=== PATIENT | male | born 1945 | race Caucasian/White ===

== ENCOUNTER 2018-08-28 22:19 | Inpatient (IN) | payer MEDICARE ==
[~2018-08-28 22:19] MED LIST: ISOVUE-370 76%-LOCM 1 ML ONE
[2018-08-28 23:00] LABS: #Eosinphils 0.1 thou/uL (0.0-0.7); #Lymphocytes 0.5 thou/uL (1.20-3.40); #Monocytes 0.3 thou/uL (0.11-0.59); #Neutrophils 6.3 thou/uL (1.40-6.50); %Basophils 0.3 % (0.0-1.0); %Eosinophils 1.1 % (0.0-10.0); %Lymphocytes 6.6 % (21.0-51.0); %Monocytes 4.2 % (0.0-10.0); %Neutrophils 87.7 % (42.0-75.0); Hemoglobin 15.8 g/dL (14.0-18.0); Mean Corpuscular HGB CONC 33.7 g/dL (32.0-36.0); Mean Corpuscular Hemoglobin 30.9 pg (27.0-31.0); Mean Corpuscular Volume 91.6 fL (78.0-98.0); Mean Platelet Volume 6.6 fL (7.4-10.4); Platelet Count 163 thou/uL (130-400); RBC Distribution Width 12.5 % (11.5-14.5); Red Blood Cell (RBC) Count 5.12 mill/uL (4.70-6.10); White Blood Cell (WBC) Count 7.2 thou/uL (4.8-10.8)
[2018-08-28] MEDS ORDERED: Piperacillin/Tazobactam 4.5 GM VIAL ONE (23:18)
[2018-08-28] MEDS ORDERED: Morphine 4 MG/ML VIAL ONE (23:18)
[2018-08-28 23:19] LABS: ALT (SGPT) 20 U/L (8-55); AST (SGOT) 20 U/L (5-34); Albumin 4.3 g/dL (3.4-4.8); Alkaline Phosphatase 70 U/L (40-150); Anion Gap 11 mmol/L (10-20); BUN (Urea Nitrogen) 20 mg/dL (8.4-25.7); Bilirubin, Total 0.6 mg/dL (0.2-1.2); Calc. Creatinine Clearance 0 mL/min (70-130); Calcium 9.1 mg/dL (7.8-10.44); Carbon Dioxide 27 mmol/L (23-31); Chloride 103 mmol/L (98-107); Estimated GFR-MDRD 75; Globulin 3.4 g/dL (2.4-3.5); Glucose 126 mg/dL (83-110); Protein, Total 7.7 g/dL (5.8-8.1); Sodium 137 mmol/L (136-145)
--- NOTE | 2018-08-29 00:03 | RAD ---
FRONTAL VIEW CHEST: INDICATIONS: Lower abdominal pain. COMPARISON: 04/19/2010 FINDINGS: There is no free air beneath the hemidiaphragms. The cardiomediastinal silhouette is accentuated by the portable technique. No lobar consolidation, significant effusion, or discrete pneumothorax. The re is a punctate density, stable, of the right mid lung zone, favoring granulomatous calcification. IMPRESSION: No evidence of focal consolidation. POS: [facility]
--- NOTE | 2018-08-29 00:35 | CT ---
CT ABDOMEN AND PELVIS WITH CONTRAST: INDICATIONS: Pain. FINDINGS: There is granulomatous calcification and mild volume loss/scarring of the lung bases. A complex mass of the left adrenal gland is present, a component of which does suggest adrenal myelolipoma, althoug h there is an additional heterogeneous soft tissue component separately located within the left adren al gland. There is also nodularity of the right adrenal gland. Granulomatous calcification is prese nt within the liver and spleen. No focal pancreatic mass. No hydronephrosis of the kidneys. Puncta te calcification of the right kidney favors nonobstructive nephrolithiasis. Vascular calcification i s seen within the left kidney. There is inflammation of the left lower quadrant, related to sigmoid diverticulosis. There are adjacent, extraluminal, small locules of air density, related to localized perforation. along with extraluminal fluid, some of which is complex in morphology, although there i s no well formed, drainable abscess currently present. Diffuse osseous degenerative change is presen t. IMPRESSION: 1. Acute sigmoid diverticulitis with localized perforation. Surgical consultation is warranted. 2. Complex left adrenal mass, a component of which is compatible with adrenal myelolipoma, although an additional component, separately, within the left adrenal gland, could relate to additional ramana ion tumor. There is also heterogeneity of the right adrenal gland. These findings should be further evaluated with a follow-up adrenal mass protocol CT abdomen. 3. Additional details are as described above. POS: [facility]
[2018-08-29] MEDS ORDERED: Morphine 4 MG/ML VIAL ONE (00:41)
[2018-08-29] MEDS ORDERED: Morphine 2 MG/ML SYRINGE SLOW IVP PRN (02:02)
[2018-08-29] MEDS ORDERED: Ondansetron ODT 4 MG TAB SL PRN (02:07)
[2018-08-29] MEDS ORDERED: Sodium Chloride 0.9% 1,000 ML IV SCH (02:07)
[2018-08-29] MEDS ORDERED: Ondansetron HCl/PF 4 MG/2 ML Vial IVP PRN (02:07)
[2018-08-29] MEDS ORDERED: Acetaminophen 325 MG TAB PO PRN (02:07)
[2018-08-29 02:18] VITALS: BMI 32.8
[2018-08-29] MEDS: Morphine 4 MG/ML VIAL SLOW IVP PRN ×2 (02:33→06:23)
[2018-08-29 03:22] LABS: Lactic Acid 3.1 mmol/L (0.5-2.2)
[2018-08-29] MEDS ORDERED: Piperacillin/Tazobactam 4.5 GM in Sodium Chloride 0.9% 100 ML IVPB SCH (06:00)
[2018-08-29] MEDS ORDERED: Morphine 4 MG/ML Carpuject IVP PRN (07:48)
[2018-08-29] MEDS ORDERED: Ondansetron ODT 4 MG TAB PO PRN (07:48)
--- NOTE | 2018-08-29 08:06 | HP ---
HISTORY OF PRESENT ILLNESS: Issa English is a 73-year-old male patient who lives in [place], has ac alturas onset of pain, right lower quadrant 3 days ago, presents to the emergency room with a white count of 7, hemoglobin 15. Basic metabolic profile normal, CAT scan revealing changes of acute diverticul itis. The patient's pain is left lower quadrant and suprapubic. The patient reports having had a co lonoscopy in early 1999, he thinks here in this area. He reports it was normal. He is having quite a bit of pain at this time. He has been afebrile. He has not had any nausea or vomiting. ALLERGIES: None. SOCIAL HISTORY: Tobacco 1-1/2 packs per day. ALCOHOL: Socially every 2-3 days. MEDICATIONS: Tylenol, indomethacin 25 mg b.i.d. PAST SURGICAL HISTORY: Cholecystectomy. PAST MEDICAL HISTORY: Gout. REVIEW OF SYSTEMS: [place] point noncontributory. FAMILY HISTORY: Noncontributory. PHYSICAL EXAMINATION: VITAL SIGNS: Height 5 foot 9, 222 pounds, BMI 32, 99.6, 97, 155/82. HEENT: Unremarkable. Sclerae nonicteric. SKIN: Nonjaundiced. Skin is normal. LYMPH: Axilla, groins, neck without lymphadenopathy. NEURO: Neurologically intact. No focal deficit. LUNGS: Clear to auscultation, no wheezing. CARDIAC: Regular rate and rhythm without murmur or gallop. ABDOMEN: Soft, tenderness in his left lower quadrant and suprapubic. EXTREMITIES: Unremarkable. No ankle edema. LABORATORY: Sodium 137, potassium 4, BUN 20, creatinine 0.98, GFR 75. Glucose 126. Lactate 2.3, wh ite count 7.2, hemoglobin 15. CAT scan; changes acute diverticulitis. ASSESSMENT AND PLAN: 1. Diverticulitis. Plan bowel rest, intravenous antibiotics, fluids. Would transition to a low fib er diet, soft diet for 2 weeks once his pain improves and tenderness improves and then after 2 weeks a high fiber diet, would recommend a colonoscopy in 4-6 weeks. Hopefully, this will resolve with int ravenous antibiotics. 2. Gout, on indomethacin. 3. Tobacco abuse.
[2018-08-29] MEDS: Lactated Ringer's 1,000 ML IV SCH ×2 (09:17→20:30)
[2018-08-29] MEDS: Morphine 4 MG/ML VIAL IV PRN ×2 (09:18→18:03)
[2018-08-29] MEDS: Enoxaparin Sodium 40 MG/0.4 ML SYRINGE SC SCH (09:19)
[2018-08-29] MEDS: Pantoprazole 40 MG VIAL IVP SCH (09:19)
[2018-08-29] MEDS: Acetaminophen 1,000 MG in Premix Bag 1 BAG IVPB SCH ×2 (11:58→18:00)
[2018-08-29] MEDS: Piperacillin/Tazobactam 4.5 GM in Sodium Chloride 0.9% 100 ML IVPB SCH ×2 (11:58→18:02)
[2018-08-29] MEDS: Ketorolac Tromethamine 30 MG/ML VIAL IVP SCH ×2 (11:59→18:01)
--- NOTE | 2018-08-29 14:55 | PQF ---
CLINICAL DOCUMENTATION IMPROVEMENT CLARIFICATION FORM: ICD-10 Updated PLEASE DO AN ADDENDUM TO THE PROGRESS NOTE WITH ANY DOCUMENTATION UPDATES OR ADDITIONS AND CARRY THROUGH TO DC SUMMARY. THANK YOU. DATE: 08/29/18 ATTN: DR. MCFADDEN Please exercise your independent, professional judgment in responding to the clarification form. Clinical indicators are provided on the bottom of this form for your review Please check appropriate box(es): [ ] Sepsis due to: (Pna, UTI, gangrenous gall bladder, etc.) Due to: [ ] Device (please specify) [ ] Implant [ ] Graft [ ] Infusion [ ] SIRS due to non-infectious process (please specify etiology) [ ] with organ dysfunction [ ] without organ dysfunction [ ] Severe sepsis with acute organ dysfunction of: (Examples: respiratory failure, encephalopathy, acute kidney failure, other) [ ] Septic Shock [ ] Localized infection without sepsis [ ] Other diagnosis [ ] Unable to determine In addition, please specify: Present on Admission (POA): [ ] Yes [ ] No [ ] Unable to determine For continuity of documentation, please document condition throughout progress notes and discharge summary. Thank You. CLINICAL INDICATORS - SIGNS / SYMPTOMS / LABS LACTIC ACID 08/28: 2.3 10: 3.1 ER NOTE: PULSE 132 RR 28 RISKS: DIVERTICULITIS TREATMENT: IV FLUIDS (ER-PRESENT) IV ZOSYN (ER-PRESENT) BLOOD CULTURES (This form is maintained as a part of the permanent medical record) 2014 [employer]. All Rights Reserved ROSALES [email or web address] Office: [phone] [facility]
[2018-08-30] MEDS: Ketorolac Tromethamine 30 MG/ML VIAL IVP SCH ×3 (00:02→12:58)
[2018-08-30] MEDS: Piperacillin/Tazobactam 4.5 GM in Sodium Chloride 0.9% 100 ML IVPB SCH ×5 (00:21→23:06)
[2018-08-30] MEDS: hydrALAZINE 20 MG/ML VIAL SLOW IVP PRN (01:25)
[2018-08-30] MEDS: Acetaminophen 1,000 MG in Premix Bag 1 BAG IVPB SCH ×5 (05:10→23:06)
[2018-08-30] MEDS: Lactated Ringer's 1,000 ML IV SCH ×2 (05:33→15:57)
[2018-08-30 06:50] LABS: #Lymphocytes 0.4 thou/uL (1.20-3.40); #Monocytes 0.3 thou/uL (0.11-0.59); #Neutrophils 7.3 thou/uL (1.40-6.50); %Basophils 0.1 % (0.0-1.0); %Eosinophils 0.5 % (0.0-10.0); %Lymphocytes 5.1 % (21.0-51.0); %Monocytes 3.2 % (0.0-10.0); %Neutrophils 91.1 % (42.0-75.0); Hemoglobin 12.8 g/dL (14.0-18.0); Mean Corpuscular HGB CONC 32.7 g/dL (32.0-36.0); Mean Corpuscular Hemoglobin 30.6 pg (27.0-31.0); Mean Corpuscular Volume 93.5 fL (78.0-98.0); Mean Platelet Volume 7.2 fL (7.4-10.4); PLT Morphology Comment Appears Decreased; Platelet Count 115 thou/uL (130-400); RBC Distribution Width 12.6 % (11.5-14.5)
[2018-08-30] MEDS: Pantoprazole 40 MG VIAL IVP SCH (08:03)
[2018-08-30] MEDS: Enoxaparin Sodium 40 MG/0.4 ML SYRINGE SC SCH (08:03)
[2018-08-30] MEDS: Morphine 4 MG/ML VIAL IV PRN (09:01)
[2018-08-30 10:33] LABS: #Lymphocytes 0.4 thou/uL (1.20-3.40); #Monocytes 0.2 thou/uL (0.11-0.59); #Neutrophils 6.4 thou/uL (1.40-6.50); %Basophils 0.1 % (0.0-1.0); %Eosinophils 0.4 % (0.0-10.0); %Lymphocytes 5.5 % (21.0-51.0); %Monocytes 2.8 % (0.0-10.0); %Neutrophils 91.2 % (42.0-75.0); Hemoglobin 13.7 g/dL (14.0-18.0); Mean Corpuscular Hemoglobin 30.9 pg (27.0-31.0); Mean Corpuscular Volume 93.7 fL (78.0-98.0); Mean Platelet Volume 6.6 fL (7.4-10.4); Platelet Count 111 thou/uL (130-400); RBC Distribution Width 12.6 % (11.5-14.5); Red Blood Cell (RBC) Count 4.44 mill/uL (4.70-6.10)
[2018-08-30 10:54] LABS: ALT (SGPT) 35 U/L (8-55); AST (SGOT) 25 U/L (5-34); Albumin 3.7 g/dL (3.4-4.8); Alkaline Phosphatase 63 U/L (40-150); Anion Gap 13 mmol/L (10-20); BUN (Urea Nitrogen) 17 mg/dL (8.4-25.7); Bilirubin, Total 1.9 mg/dL (0.2-1.2); Calc. Creatinine Clearance 95 mL/min (70-130); Calcium 9.3 mg/dL (7.8-10.44); Carbon Dioxide 26 mmol/L (23-31); Chloride 103 mmol/L (98-107); Estimated GFR-MDRD 73; Globulin 3.3 g/dL (2.4-3.5); Glucose 130 mg/dL (83-110); Potassium 4.5 mmol/L (3.5-5.1); Sodium 137 mmol/L (136-145)
[2018-08-30] MEDS ORDERED: Lactated Ringer's 1,000 ML IV SCH ×3 (11:26→17:00)
[2018-08-30] MEDS ORDERED: Vecuronium 10 MG VIAL ONE (11:31)
[2018-08-30] MEDS ORDERED: Metoprolol Tartrate 5 MG/5 ML VIAL ONE (11:31)
[2018-08-30 11:37] LABS: Actual Bicarbonate (HCO3a) 22.6 mEq/L (22-28); Base Excess (BEa) -3.1 mEq/L (-2.0 to +3.0); CO2 Tension 42.9 mmHg (35.0-45.0); Calcium, Ionized 1.15 mmol/L (1.12-1.30); Carboxyhemoglobin (COHb) 2.3 gm% (0.0-3.0); Hemoglobin (Hb) 14.5 g/dL (14.0-18.0); O2 Tension (PaO2) 113.1 mmHg (> 70.0); Potassium - ABG Lab 3.86 mmol/L (3.70-5.30); Puncture Site LRA; pH, Arterial 7.34 (7.35-7.45)
[2018-08-30 11:39] LABS: ALV-art Gradient 32.915 (0-20)
--- NOTE | 2018-08-30 11:50 | PRG ---
DATE OF SERVICE: 08/30/2018 SUBJECTIVE: Mr. Garcia is dyspneic this morning. He states his abdominal pain is no different than it was yesterday, but he is having a terrible time breathing. He is a pack and half a day smoker in the past. He has been on IV antibiotics with LR at 125 an hour. He has had Lovenox ordered since ad mission yesterday. He had a 2-view chest, 2-view abdomen today revealing COPD changes, ileus changes , no free air. LABORATORY DATA: Comprehensive metabolic profile unremarkable. Bilirubin elevated at 1.9. His whit e count is 7, hemoglobin 13. Differential is unremarkable. PHYSICAL EXAMINATION: VITAL SIGNS: Temperature is 97.9 degrees, heart rate 113, respiratory rate 24-22, 94% on nasal cannu la, blood pressure 166/82. LUNGS: Slightly coarse at the base, but there is no wheezing. He is terribly tachypneic, dyspneic. CARDIAC: Sinus tachycardia, 105-108. ABDOMEN: Slightly protuberant, distended. His abdomen seems to be soft with focal tenderness in lef t lower quadrant as well as yesterday. ASSESSMENT AND PLAN: Increased abdominal distention. Plain radiograph x-ray did not reveal evidence of free air. I do not think he needs an emergent operation and I think he is having an exacerbation of his chronic obstructive pulmonary disease. We will order a stat echocardiogram, cardiac enzymes, EKG, nebulizer treatment and decrease his IV fluids to 100 an hour. I have consulted Dr. Saurav Kelly and spoke with him personally. We will transfer the patient to ICU, continue n.p.o., IV fluids and a ntibiotics. If he does end up getting intubated, we will probably obtain a CAT scan of his abdomen a nd pelvis again.
[2018-08-30] MEDS ORDERED: Propofol 1,000 MG/100 ML VIAL IV ONE (11:53)
[2018-08-30] MEDS: Midazolam HCl 2 mg/2 ml Vial ONE ×2 (11:55→12:00)
[2018-08-30] MEDS ORDERED: Ventilator Sedation Protocol 1 EACH FS SCH (12:15)
[2018-08-30] MEDS ORDERED: Lorazepam 2 MG/ML VIAL SLOW IVP PRN (12:19)
[2018-08-30] MEDS ORDERED: DISCONTINUE PREVIOUS NARCOTIC PAIN MEDICATIONS AND BENZODIAZEPINES FS SCH (12:19)
[2018-08-30] MEDS ORDERED: fentaNYL Citrate/PF 2,000 MCG in Sodium Chloride 0.9% 60 ML IV SCH (12:19)
[2018-08-30] MEDS ORDERED: Fentanyl BOLUS 250 ML IVPB PRN (12:19)
[2018-08-30] MEDS ORDERED: Propofol BOLUS 1,000 MG/100 ML VIAL IV PRN (12:19)
[2018-08-30 12:42] LABS: CKMB 7.4 ng/mL (0-6.6); Troponin I 0.415 ng/mL (< 0.028)
[2018-08-30] MEDS: Morphine 4 MG/ML VIAL SLOW IVP PRN ×2 (12:49→23:07)
[2018-08-30] MEDS ORDERED: Iopamidol 370 76% 50 ML VIAL FS ONE (12:49)
[2018-08-30] MEDS ORDERED: ISOVUE-370 76%-LOCM 1 ML ONE (12:49)
--- NOTE | 2018-08-30 13:18 | RAD ---
ABDOMEN TWO VIEW ONE VIEW CHEST: History: Sigmoid diverticulitis. Comparison: CT 08-28-18 FINDINGS: Mild atelectatic changes in the lung bases. Heart size within normal limits given technique. Upright view is severely limited. The hemidiaphragms are not fully evaluated. Evaluation for free air is limited. There mildly distended loops of small bowel throughout the abdomen. This may be a sequellae of ileus. The known extraluminal air seen in the CT examination is not seen on today's radiograph. IMPRESSION: Limited evaluation for free intraperitoneal gas although no gross free intraperitoneal air is seen. 2. Mildly distended loops of small bowel throughout the abdomen likely ileus. POS: [facility]
--- NOTE | 2018-08-30 13:28 | CON ---
DATE OF CONSULTATION: 08/30/2018 HISTORY OF PRESENT ILLNESS: This is a 73-year-old gentleman. I was called on an emergency basis to see the patient on the surgical floor after he was found to be tachypneic and tachycardic. Dr. Mandujano is his surgeon who admitted the patient. Apparently he has got a perforated sigmoid colon with localized infection. He started having marked respiratory distress this morning. Breathing 30-40 times a minute, pulse 12 0, blood pressure 150/80. When I arrived, he was clearly struggling His main problem appears to be difficult breathing, though according to the nurses taking care of the patient he has been complainin g of abdominal distention now for the last several hours. A stat chest x-ray was taken which did not show any acute infiltrates. His blood gases were obtained stat which showed a PO2 113, pCO2 42 and a pH of 3.34 on 2 liters nasal O2. His BUN and creatinine were normal. His electrolytes are normal. Glucose 130. He continued to have difficulty breathing in spite of getting neb treatments. According to the who was present at the bedside the patient has not had a physical for a period of time and presented to the hospital with new onset right lower quadrant pain with a hemoglobin of 1 5. White count is 7000. CAT scan revealed acute diverticulitis, left lower quadrant discomfort. PAST MEDICAL HISTORY: Apparently important only for gout. Apparently, he takes indomethacin 25 twic e a day. PAST SURGICAL HISTORY: Include cholecystectomy. SOCIAL HISTORY: Tobacco 1-1-1/2 packs a day for most of his life. He is a commercial roofer. Presently sedent giovanna. REVIEW OF SYSTEMS: Pertinent for severe COPD, according to his he can barely walk 50 feet witho ut getting markedly short of breath, but he apparently has no medication that I can see he is taking for his breathing. PHYSICAL EXAMINATION: VITAL SIGNS: He was transferred to the ICU, still breathing 35-40 a minute, pulse 140. Blood pressu re 180/80. CHEST: Chest revealed decreased breath sounds, no wheezing. CARDIAC: Sinus tachycardia. ABDOMEN: Very distended. I discussed with Dr. Mandujano, his surgeon, it is felt the best option at this time was to intubate him , send him for a CT of his abdomen and his chest. Thereafter, in the ICU, he was given a total of 2+2 of Versed. A bite block placed, a 7.5 endotrache al tube was placed above the bronchoscope and intubated. Tube was placed above the magy. He requi red Diprivan in addition of morphine. He was placed on a fentanyl and Diprivan drip. Stat CT of his chest and abdomen are being ordered. ADDITIONAL LABORATORY: White count 7000, H&H 13 and 41, platelet count is low at 11. Electrolytes a re normal. Glucose 130. IMPRESSION: 1. Respiratory distress, probably secondary to marked abdominal distention. 2. Probably chronic obstructive pulmonary disease, though he has never had a workup. 3. Marked anxiety 4. History of gout. PLAN: Antibiotics have been initiated by surgery, Yoselyn. I have added nebs, steroids. Post-intubat ion vent support, emergency x-ray and echo is being ordered. This is a 45 minute critical care time exclusive of the intubation.
[2018-08-30 14:20] LABS: Actual Bicarbonate (HCO3a) 25.5 mEq/L (22-28); Base Excess (BEa) -0.3 mEq/L (-2.0 to +3.0); CO2 Tension 45.8 mmHg (35.0-45.0); Calcium, Ionized 1.13 mmol/L (1.12-1.30); Carboxyhemoglobin (COHb) 1.8 gm% (0.0-3.0); Hemoglobin (Hb) 13.4 g/dL (14.0-18.0); O2 Tension (PaO2) 70.7 mmHg (> 70.0); Potassium - ABG Lab 4.11 mmol/L (3.70-5.30); pH, Arterial 7.36 (7.35-7.45)
--- NOTE | 2018-08-30 14:20 | RAD ---
PORTABLE CHEST ONE VIEW: 08/30/18 at 11:37 a.m. HISTORY: Respiratory distress. FINDINGS/IMPRESSION: Comparison is made with exam of 08/28/18. The heart size is mildly enlarged. The aorta is tortuous. The lungs are well expanded without focal a reas of consolidation, pneumothoraces, bobby pulmonary edema or pleural effusions. There is evidence of old granulomatous disease. POS: [facility]
[2018-08-30 14:25] LABS: Puncture Site LB
[2018-08-30] MEDS: Propofol 1,000 MG/100 ML VIAL IV PRN (15:41)
[2018-08-30] MEDS: Metoclopramide HCl 10 MG/2 ML VIAL IVP SCH ×2 (15:50→21:37)
[2018-08-30] MEDS ORDERED: Lactated Ringer's 500 ML IV SCH (16:15)
[2018-08-30] MEDS ORDERED: Sodium Chloride 0.9% 20 ML ONE (17:02)
[2018-08-30] MEDS ORDERED: Sodium Chloride 0.9% 1,000 ML IV SCH (17:15)
[2018-08-30] MEDS ORDERED: Bupivacaine PF 0.5% 30 ML VIAL ONE (17:19)
--- NOTE | 2018-08-30 17:22 | CT ---
CT ANGIOGRAM OF CHEST WITH CONTRAST CT ABDOMEN WITH CONTRAST CT PELVIS WITH CONTRAST 08/30/18 HISTORY: Shortness of breath. Abdominal distention. COMPARISON: CT abdomen and pelvis 08/28/18. FINDINGS: CT angiogram of the chest performed after the intravenous administration of contrast. 3D rendering p rovided. Subsequently, an abdomen and pelvis CT was performed after the intravenous administration of contrast. There is no proximal segmental pulmonary arterial filling defect. Numerous mildly prominent mediastin al lymph nodes are present. No pericardial effusion. Atelectatic changes of the lung bases. Small effusions. The amount of free intraperitoneal gas has increased. 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 Renal enhancement is similar. Perforation of the diverticular disease is similar. There is some mild sigmoid mesenteric leave edema. Punctate calculi both renal collectin g systems. The amount of free fluid in the pelvis is increased which is mildly complex. IMPRESSION: 1. Increased free intraperitoneal gas and perforated sigmoid diverticulitis also with increased free intraperitoneal fluid as well as fluid along the sigmoid mesentery. 2. No proximal segmental pulmonary arterial filling defect. Code CR - nurse in CCU notified of findings via telephone at 3:19 p.m. She stated she would contact Pantera Mandujano. POS: [facility]
[2018-08-30] MEDS: Sodium Chloride 0.9% 1,000 ML IV SCH ×2 (18:13→21:37)
[2018-08-30] MEDS ORDERED: Fentanyl 100 MCG/2 ML VIAL ONE (18:36)
--- NOTE | 2018-08-30 18:36 | PRG ---
DATE OF SERVICE: 08/30/2018 Issa English was dyspneic this morning. He was tachypneic, respiratory rate 24-26. Patient had a sta t 2 view abdomen and chest x-ray. Chest x-ray showed changes COPD, but no infiltrates. Abdominal x- rays were nonspecific. Laboratories obtained reveal sodium 137, potassium 4.5, creatinine 1, GFR 73, glucose 130. The patient had a white count of 7, hemoglobin 13. His lungs were clear, without whee zing, rhonchi, and coarse base. Abdomen is soft, distended, slightly tympanitic, tender left lower q uadrant with guarding. Equivocally tender other quadrants. Exam was equivocal although more distend ed than yesterday. The patient was transferred to the ICU and Dr. Kelly saw him in consultation. Blo od gases obtained revealed a pH 7.34, pCO2 of 42, pO2 of 113. His bicarbonate was 22. Because his r espiratory demise, tachypnea, dyspnea, he was intubated. He was then given oral contrast through an orogastric tube and IV contrast for CAT scan revealing increased free air and fluid. I then discusse d with his family the deterioration and progression of his diverticulitis with increased pneumoperito neum and with his current condition. Recommendations for a laparotomy, colon resection, colostomy, p ostoperative ventilation. We will also plan placement of a central line to improve IV access. I hav e informed the family that he will be on the ventilator for a few days. There may be a need for a tr acheostomy in the future, we will have to see how he does day to day. I have informed him the risk, infection, bleeding, reoperation, future complications, renal cardiopulmonary. We will ask Cardiolog y to see him regarding his increased troponins, which is probably due to his stress currently with se psis. Continue Zosyn high dose 4.5 grams q.6 hours.
[2018-08-30] MEDS: Mometasone/Formoterol 120 PUFF INHALER INH SCH (18:37)
--- NOTE | 2018-08-30 21:49 | RAD ---
FRONTAL VIEW CHEST: 08/30/18 COMPARISON: 08/30/18 INDICATION: Central line evaluation. FINDINGS: There has been placement of an endotracheal tube with tip between the thoracic inlet and magy. Ther e is a left subclavian venous catheter with tip overlying the SVC region. Enteric catheter is partial ly visualized traversing to the left upper abdomen, not fully visualized, distally. There is patchy b ilateral pulmonary parenchymal density favoring edema. Punctate density of the lateral right mid lung zone may relate to granulomatous calcification. There is persistent prominence of the cardiac silhou ette. Vascular congestion noted. IMPRESSION: Interval placement of supportive lines/tubes as above. Findings which favor CHF and edema. POS: [facility]
--- NOTE | 2018-08-31 02:31 | OP ---
PREOPERATIVE DIAGNOSES: Perforated diverticulitis with peritonitis generalized and respiratory failu re on ventilator, obesity, tobacco abuse, chronic obstructive pulmonary disease, poor IV access. POSTOPERATIVE DIAGNOSES: Perforated diverticulitis with peritonitis generalized and respiratory fail ure on ventilator, obesity, tobacco abuse, chronic obstructive pulmonary disease, poor IV access. PROCEDURES: Exploratory laparotomy, mobilization of splenic flexure, sigmoid colon resection, colost teena, Asmita's pouch marked with a 2-0 Prolene suture for later identification. Seprafilm applicati on between the viscera and the abdominal wall, skin and subcutaneous tissue left on healing by second giovanna intention. Anesthesia was placed in left subclavian vein central line. SURGEON: Milan Mandujano M.D. ANESTHESIA: General. ESTIMATED BLOOD LOSS: 200 mL BLOOD TRANSFUSED: None. FINDINGS: Diffuse peritonitis with purulent exudate over the small bowel and the left upper quadrant with peritonitis and a perforated sigmoid diverticulum. PROCEDURE NOTE: The patient was taken to the operating room where under general anesthesia, anesthes ia initially was placed in left subclavian vein central line. Abdomen was clipped of hair, prepared with ChloraPrep, draped in routine fashion. Incision was made centered about the umbilicus verticall y carried out through the skin and subcutaneous tissue, midline fascia and abdominal cavity sharply. There was inflammatory exudate over the small bowel and perforated sigmoid diverticulitis apparent. The sigmoid colon was mobilized along the line of Toldt. Splenic flexure taken down. This was some what difficult due to his obesity but accomplished with a colon injury. Gastrocolic ligament taken d own from the distal transverse colon using the cautery. Gonadal vessels, ureter kept free of harm as they were identified and sigmoid mesentery was divided with the LigaSure and divided between clamps and ligated with 2-0 silk ties where necessary. Colon was mobilized and at the distal sigmoid colon, FRANCISCO stapler was used to divide the colon at the descending sigmoid colon junction. Colon was divide d with FRANCISCO stapler and mesentery was divided with the LigaSure and 2-0 silk ties and submitted to pat hology. Left colon was adequately mobilized for colostomy formation and for a later reversal. Good hemostasis was noted. Abdominal cavity was irrigated with more than 6 liters of fluid. NG tube was palpated in good position. Sponge and needle counts were correct. Good hemostasis noted. Seprafilm , three sheets placed between the viscera and abdominal wall. Redundant omentum had been removed wit h the LigaSure. The fascia was approximated using continuous suture of #1 PDS. Skin and subcutaneou s tissues irrigated, skin was approximated in the midline about the umbilicus with claudia and open above and below and Gauze dressing was applied for wound VAC application tomorrow.
[2018-08-31] MEDS: Morphine 4 MG/ML VIAL SLOW IVP PRN ×2 (03:36→20:13)
[2018-08-31] MEDS: Propofol 1,000 MG/100 ML VIAL IV PRN ×2 (03:36→08:57)
[2018-08-31] MEDS: Sodium Chloride 0.9% 1,000 ML IV SCH (03:42)
[2018-08-31 04:24] LABS: #Basophils 0.1 thou/uL (0.0-0.2); #Lymphocytes 0.2 thou/uL (1.20-3.40); #Monocytes 0.2 thou/uL (0.11-0.59); #Neutrophils 7.5 thou/uL (1.40-6.50); %Basophils 1.1 % (0.0-1.0); %Eosinophils 0.1 % (0.0-10.0); %Lymphocytes 2.5 % (21.0-51.0); %Monocytes 2.2 % (0.0-10.0); %Neutrophils 94.1 % (42.0-75.0); Hemoglobin 11.5 g/dL (14.0-18.0); Mean Corpuscular HGB CONC 32.8 g/dL (32.0-36.0); Mean Corpuscular Hemoglobin 30.9 pg (27.0-31.0); Platelet Count 131 thou/uL (130-400); RBC Distribution Width 12.3 % (11.5-14.5); Red Blood Cell (RBC) Count 3.71 mill/uL (4.70-6.10); White Blood Cell (WBC) Count 7.9 thou/uL (4.8-10.8)
[2018-08-31 04:35] LABS: ALT (SGPT) 31 U/L (8-55); AST (SGOT) 51 U/L (5-34); Albumin 2.8 g/dL (3.4-4.8); Alkaline Phosphatase 43 U/L (40-150); Anion Gap 11 mmol/L (10-20); BUN (Urea Nitrogen) 24 mg/dL (8.4-25.7); Bilirubin, Total 0.6 mg/dL (0.2-1.2); Calc. Creatinine Clearance 70 mL/min (70-130); Calcium 8.1 mg/dL (7.8-10.44); Carbon Dioxide 22 mmol/L (23-31); Chloride 107 mmol/L (98-107); Estimated GFR-MDRD 52; Globulin 2.8 g/dL (2.4-3.5); Glucose 252 mg/dL (83-110); Potassium 3.8 mmol/L (3.5-5.1); Protein, Total 5.6 g/dL (5.8-8.1); Sodium 136 mmol/L (136-145)
[2018-08-31] MEDS: Acetaminophen 1,000 MG in Premix Bag 1 BAG IVPB SCH ×4 (05:13→23:16)
[2018-08-31] MEDS: Piperacillin/Tazobactam 4.5 GM in Sodium Chloride 0.9% 100 ML IVPB SCH ×4 (05:13→23:15)
[2018-08-31] MEDS: Metoclopramide HCl 10 MG/2 ML VIAL IVP SCH (05:13)
[2018-08-31 06:58] LABS: Actual Bicarbonate (HCO3a) 22.2 mEq/L (22-28); Base Excess (BEa) -3.2 mEq/L (-2.0 to +3.0); CO2 Tension 41.2 mmHg (35.0-45.0); Calcium, Ionized 1.06 mmol/L (1.12-1.30); Hemoglobin (Hb) 11.5 g/dL (14.0-18.0); O2 Tension (PaO2) 85.1 mmHg (> 70.0); Potassium - ABG Lab 3.67 mmol/L (3.70-5.30); Puncture Site RRA; pH, Arterial 7.35 (7.35-7.45)
[2018-08-31] MEDS: Mometasone/Formoterol 120 PUFF INHALER INH SCH ×2 (07:35→18:28)
--- NOTE | 2018-08-31 08:44 | RAD ---
CHEST 1 VIEW: HISTORY: Dyspnea. Followup. COMPARISON: 08/30/2018. FINDINGS: Cardiac silhouette is magnified and upper limits of normal in size. Pulmonary vasculature is slightl y less engorged than on the prior study. Mediastinum midline. Lines and tubes appear unchanged in p osition. IMPRESSION: Slight interval improvement in radiographic appearance of pulmonary vascular congestion. Other findi ngs are stable. POS: [facility]
[2018-08-31] MEDS: Pantoprazole 40 MG VIAL IVP SCH (08:54)
[2018-08-31] MEDS: Enoxaparin Sodium 40 MG/0.4 ML SYRINGE SC SCH (08:54)
--- NOTE | 2018-08-31 09:50 | PRG ---
DATE OF SERVICE: 08/31/2018 This morning he is awake, alert, responsive, on the vent, status post lap for a perforated bowel. Please review the surgeon's note. The patient came back from the ICU on the vent. He had perforated diverticulitis with peritonitis ge neralized. PHYSICAL EXAMINATION: VITAL SIGNS: Blood pressure 134/72, pulse 97, sats 97%, respirations 13. His I's and O's have been 4323 in, 147 out. CHEST: Chest revealed decreased breath sounds, no wheezing. CARDIAC: Normal S1-S2. No gallops. ABDOMEN: Soft. No guarding, distended, soft. NEUROLOGIC: He is awake, responsive. EXTREMITIES: No edema. LABORATORY: His pO2 is 85, pCO2 41, pH 7.37, rate of 20, 40%, 500 tidal volume, PEEP of 5. X-ray wa s clear. White count 7000 with a big left shift. IMPRESSION: 1. Abdominal sepsis. 2. Perforated diverticulitis. 3. Respiratory failure. 4. Morbid obesity. 5. Chronic obstructive pulmonary disease. PLAN: We will discontinue sedation to see whether he is weanable. One-half hour critical care time.
[2018-08-31] MEDS ORDERED: DC Sedation Protocol FS ONE (10:24)
[2018-08-31] MEDS ORDERED: 1/2 NS w/KCL 20 mEq 1,000 ML IV SCH (10:45)
--- NOTE | 2018-08-31 11:06 | PRG ---
DATE OF SERVICE: 08/31/2018 Postoperative day #1, status post emergent yesterday evening, laparotomy, splenic flexure mobilizati on, sigmoid colon resection and colostomy, Asmita's procedure and central line. The patient is on the ventilator. He has severe COPD. He is a 2 pack a day smoker. PHYSICAL EXAMINATION: VITAL SIGNS: Heart rate 98, 136/96. LUNGS: Clear to auscultation. Coarse breath sounds, no wheezing. CARDIAC: Regular rate and rhythm. ABDOMEN: Soft. No guarding. Colostomy healthy. Dressings over wound. Wound Care Team to place a wound VAC today. EXTREMITIES: Unremarkable. LABORATORY: White count 7, hemoglobin 11.5. Basic metabolic profile: Sodium 136, potassium 3.8, ch loride 107, BUN 24, creatinine 1.36. The patient had an echocardiogram, EF was difficult to calculate or determine due to technical reason s. Cardiology consult submitted for elevated CK-MB and troponin 7.1 and 0.4 respectfully. This is p robably stress sepsis related. Patient, however, is at risk for coronary disease due to his long-ter m tobacco abuse and COPD. ASSESSMENT AND PLAN: 1. Respiratory failure, status post laparotomy, colostomy, and Asmita's pouch. A chest x-ray this morning revealed good line placement, good endotracheal placement and less vascular congestion than yesterday. Dr. Kelly is following the patient for his chronic obstructive pulmonary disease and respi ratory failure and will evaluate him today to determine whether he can be weaned from the ventilator or not. The patient is awake and nods his head to conversation. 2. Continue NG tube, n.p.o., IV fluid support. Continue Lovenox and analgesics as indicated. 3. Open skin and subcutaneous tissue. Wound VAC application by Wound Care team. 4. It is likely the patient will need to go to rehab postoperatively and will submit a rehab screeni ng. 5. Urine output is a 30-40 mL per hour with fluids 150 per hour. Continue IV fluids.
[2018-08-31] MEDS ORDERED: Morphine 4 MG/ML VIAL SLOW IVP SCH (16:00)
[2018-08-31] MEDS ORDERED: Furosemide 20 MG/2 ML VIAL SLOW IVP SCH (16:15)
[2018-08-31] MEDS: 1/2 NS w/KCL 20 mEq 1,000 ML IV SCH ×2 (16:53→20:45)
[2018-08-31] MEDS: hydrALAZINE 20 MG/ML VIAL SLOW IVP PRN (17:10)
--- NOTE | 2018-08-31 21:40 | CON ---
DATE OF CONSULTATION: 08/31/2018 REASON FOR CONSULTATION: Slight increased troponin level following an episode of perforated viscus i n the abdomen. HISTORY OF PRESENT ILLNESS: Mr. English is a 73-year-old gentleman presented with abdominal pain and r espiratory distress, found to have a ruptured diverticula with peritonitis. In the postoperative per iod, troponin levels drawn and it is slightly elevated. He has no chest pain or pressure. He is off the ventilator today. No previous cardiac history according to the patient. REVIEW OF SYSTEMS: Constitutional: Feels weak, but better today. Vision: No changes. Hearing: N o changes. Pulmonary: No cough or wheezing. Gastrointestinal: As outlined above. He still has ab dominal pain postoperatively. Skin: No rashes. Neurologic: No unilateral weakness or numbness. P sychiatric: No unusual depression or anxiety. MEDICATIONS: He is currently on antibiotics. He is receiving intravenous fluid. He is on pain medi cine if needed. Subcutaneous Lovenox. PHYSICAL EXAMINATION: GENERAL: This is a pleasant 73-year-old gentleman in no distress. VITAL SIGNS: Blood pressure 163/86, pulse is 94, it is sinus on the monitor. HEENT: Eyes, sclerae nonicteric. Mouth mucous membranes moist. NECK: Supple, no lymphadenopathy. LUNGS: Clear, no wheezing, rales or rhonchi. CARDIAC: Normal S1, normal S2. There is no murmur, rub or gallop. ABDOMEN: Obese, nontender, no hepatosplenomegaly. EXTREMITIES: Warm, dry, no clubbing or cyanosis. There is trace edema. PERTINENT LABORATORY DATA: Hemoglobin is 11.5, WBC 7.9. Arterial blood gas pH 7.35, pCO2 of 41, pO2 of 85. Potassium 3.8. Troponin 0.415. EKG from the 3rd did not show any acute changes. ASSESSMENT: Increased troponin level, probably due to demand ischemia, although the EKG does indicat e a possible old anteroseptal infarct from the EKG done on 08/28. PLAN: 1. Repeat EKG tomorrow, could have underlying coronary artery disease. Some of the EKG does look li ke there is some ST depression on the 12-lead EKG. 2. We will attempt to obtain an echocardiogram when he is more stable or at least a stress test as a n outpatient. He may have been on a ventilator when they tried to do the echocardiogram before. We will follow with you.
[2018-08-31 23:38] LABS: Magnesium 1.6 mg/dL (1.6-2.6); Potassium 3.8 mmol/L (3.5-5.1)
[2018-09-01] MEDS: Morphine 4 MG/ML VIAL SLOW IVP PRN ×4 (00:12→22:27)
[2018-09-01 04:53] LABS: #Basophils 0.1 thou/uL (0.0-0.2); #Lymphocytes 0.2 thou/uL (1.20-3.40); #Monocytes 0.2 thou/uL (0.11-0.59); #Neutrophils 6.1 thou/uL (1.40-6.50); %Basophils 1.7 % (0.0-1.0); %Eosinophils 0.1 % (0.0-10.0); %Monocytes 3.3 % (0.0-10.0); %Neutrophils 91.8 % (42.0-75.0); Hemoglobin 10.4 g/dL (14.0-18.0); Mean Corpuscular HGB CONC 32.8 g/dL (32.0-36.0); Mean Corpuscular Hemoglobin 30.4 pg (27.0-31.0); Mean Corpuscular Volume 92.7 fL (78.0-98.0); Mean Platelet Volume 7.4 fL (7.4-10.4); Platelet Count 135 thou/uL (130-400); RBC Distribution Width 12.4 % (11.5-14.5); Red Blood Cell (RBC) Count 3.41 mill/uL (4.70-6.10); White Blood Cell (WBC) Count 6.6 thou/uL (4.8-10.8)
[2018-09-01 05:04] LABS: Anion Gap 12 mmol/L (10-20); BUN (Urea Nitrogen) 25 mg/dL (8.4-25.7); Calc. Creatinine Clearance 105 mL/min (70-130); Calcium 7.9 mg/dL (7.8-10.44); Carbon Dioxide 22 mmol/L (23-31); Chloride 108 mmol/L (98-107); Estimated GFR-MDRD 82; Glucose 156 mg/dL (83-110); Potassium 3.7 mmol/L (3.5-5.1); Sodium 138 mmol/L (136-145)
[2018-09-01] MEDS: Acetaminophen 1,000 MG in Premix Bag 1 BAG IVPB SCH ×2 (05:17→12:09)
[2018-09-01] MEDS: 1/2 NS w/KCL 20 mEq 1,000 ML IV SCH ×2 (05:18→16:43)
[2018-09-01] MEDS: Piperacillin/Tazobactam 4.5 GM in Sodium Chloride 0.9% 100 ML IVPB SCH ×3 (05:18→17:35)
[2018-09-01] MEDS: Mometasone/Formoterol 120 PUFF INHALER INH SCH ×2 (07:10→18:42)
--- NOTE | 2018-09-01 08:42 | RAD ---
PORTABLE AP CHEST XRAY: DATE: 09/01/2018. HISTORY: Dyspnea. COMPARISON: 08/31/2018. FINDINGS: Nasogastric tube and left subclavian central venous catheters remain in place and unchanged in positi on. Cardiac silhouette and pulmonary vasculature are within normal limits for the portable technique of the study. There is mild elevation of the left hemidiaphragm. There is mild increased density a t the medial right lung base probably related to atelectasis and superimposition of structures. Over all there has been no significant interval change from the prior exam. IMPRESSION: Stable chest with a slightly greater degree of atelectasis at the medial right lung base. POS: [facility]
[2018-09-01] MEDS: Pantoprazole 40 MG VIAL IVP SCH (08:47)
[2018-09-01] MEDS: Enoxaparin Sodium 40 MG/0.4 ML SYRINGE SC SCH (08:48)
--- NOTE | 2018-09-01 09:04 | PRG ---
DATE OF SERVICE: 09/01/2018 SUBJECTIVE: Mr. English is awake and alert today, feels well. He has no complaints. PHYSICAL EXAMINATION: VITAL SIGNS: Blood pressure 166/99 and pulse earlier was in the 50s, now it is in the 70s. LUNGS: Clear. CARDIAC: Normal S1, normal S2. ABDOMEN: Soft, nontender. EKG looks like anterior ischemia. It is also sinus rhythm with PACs, some of it looks bradycardic. Talking to Mr. English, he says he does get burning in his chest "in the past when he drank whiskey," b ut also when he exerted himself. ASSESSMENT: 1. Probable severe coronary artery disease. 2. Recent ruptured diverticulitis with peritonitis. 3. Hypertension. 4. Intermittent mild bradycardia. PLAN: 1. We will add aspirin. 2. Add nitrates. 3. We will avoid beta blockers at this time as he has been intermittently relatively bradycardiac. Ultimately, he will need cardiac catheterization. I suspect that he does have severe underlying shilpa nary disease, possibly multivessel. Prognosis is guarded in this gentleman. Will add aspirin and probably start dual antiplatelet drugs soon once he is able to be up and around a little bit and take oral medicines reliably. He will need likely to have cardiac catheterization prior to discharge. Echocardiogram did not really reveal his left ventricular function adequately. We will try to repeat that.
[2018-09-01 09:28] LABS: Hemoglobin A1c 5.7 % (4.0-6.0)
[2018-09-01 10:09] LABS: Cardiac Risk 10.7 (Less than 4.5)
--- NOTE | 2018-09-01 11:39 | PRG ---
DATE OF SERVICE: 09/01/2018 SUBJECTIVE: Status post lap for acute abdomen, perforated viscus, history of severe COPD. This morn ing, he is still complaining of difficulty breathing. OBJECTIVE: VITAL SIGNS: His sats are 98 on room air, respirations 25, pulse is 91, blood pressure 175/93. CHEST: Decreased breath sounds, no wheezing. CARDIAC: Sinus tachycardia. ABDOMEN: Soft without any masses. LABORATORY DATA: White count 6000, hemoglobin and hematocrit are 10 and 31, platelet count is normal . His electrolytes are normal. X-RAY FINDINGS: His chest x-ray shows bibasilar infiltrates. IMPRESSION: 1. Probably chronic obstructive pulmonary disease. 2. Tobacco abuse. 3. Status post laparoscopy. PLAN: Continue neb treatments, steroids, supportive care, and PT. We will follow. [id number] critical care time.
[2018-09-01] MEDS: Nitroglycerin 2% Ointment 1 INCH/1 GM Packet TOP SCH ×2 (14:00→22:16)
[2018-09-01] MEDS: Lorazepam 2 MG/ML VIAL SLOW IVP PRN ×2 (16:51→21:09)
[2018-09-02] MEDS: Piperacillin/Tazobactam 4.5 GM in Sodium Chloride 0.9% 100 ML IVPB SCH ×5 (00:09→23:56)
[2018-09-02] MEDS: Acetaminophen 1,000 MG in Premix Bag 1 BAG IVPB SCH ×5 (00:09→23:55)
[2018-09-02] MEDS: 1/2 NS w/KCL 20 mEq 1,000 ML IV SCH ×3 (00:13→14:48)
--- NOTE | 2018-09-02 03:02 | PRG ---
DATE OF SERVICE: 09/01/2018 SUBJECTIVE: Issa English is a 73-year-old male patient, 2 days status post laparotomy, colon resectio n, splenic flexure mobilization, Asmita's procedure, colostomy for perforated diverticulitis. He h ad inflammatory exudate over the bowel. Abdominal washout was with more than 6 liters of fluid. Pat ient was extubated this morning. He has refused to walk with physical therapy. OBJECTIVE: VITAL SIGNS: Blood pressure 179/77, heart rate 100, respiratory rate 20. Gastric drainage [address] 24 hours, urine output 2015. LUNGS: Clear to auscultation. CARDIAC: Regular rhythm without murmur or gallop. ABDOMEN: Soft, nontympanitic. Colostomy healthy, Wound VAC in place. I cannot hear any bowel sound s. EXTREMITIES: Unremarkable. LABORATORY DATA: White count 6, hemoglobin 10.4, sodium 138, potassium 3.7, chloride 108, carbon griselda xide 22, creatinine 0.91, GFR 82. Note that Dr. Ruy Bui saw the patient for his elevated cardiac enzymes. His echocardiogram was technically inferior and could not be adequately ascertained. Dr. Bui believes increased troponi ns were due to demand ischemia, although EKG did indicate a possible old anterior septal infarct. Emir nathan denies any chest pain. He is a heavy smoker does have significant coronary artery diseas e. Dr. Bui has had aspirin, nitrates, but has held beta blockers due to his bradycardia. It was felt that he will ultimately need a cardiac catheterization. Dual antiplatelet drugs are planned to be started soon and he likely will need a cardiac catheterization prior to discharge. Dr. Bui wan rafael to repeat his echocardiogram. ASSESSMENT AND PLAN: 1. Status post laparotomy for peritonitis, perforated diverticulitis, colostomy is healthy. Continu e NG tube. Await gastrointestinal function. 2. Tobacco abuse. 3. Noncompliance and cooperative and working with his physical therapy that is important for the pat ient to be out of and to ambulate. Would observe him in the ICU today and considering his probable s ignificant coronary artery disease lived in ICU over the weekend. Dr. Tolbert is covering over t he weekend.
[2018-09-02 04:09] LABS: Anion Gap 10 mmol/L (10-20); BUN (Urea Nitrogen) 28 mg/dL (8.4-25.7); Calc. Creatinine Clearance 0 mL/min (70-130); Carbon Dioxide 24 mmol/L (23-31); Chloride 110 mmol/L (98-107); Estimated GFR-MDRD Greater than 90; Glucose 151 mg/dL (83-110); Potassium 4.2 mmol/L (3.5-5.1); Sodium 140 mmol/L (136-145)
[2018-09-02] MEDS: Mometasone/Formoterol 120 PUFF INHALER INH SCH ×2 (06:28→19:05)
[2018-09-02] MEDS: Nitroglycerin 2% Ointment 1 INCH/1 GM Packet TOP SCH ×3 (06:31→21:29)
--- NOTE | 2018-09-02 07:46 | RAD ---
CHEST 1 VIEW: HISTORY: Dyspnea. Followup. COMPARISON: 09/01/2018. FINDINGS: Cardiac silhouette is magnified and enlarged. Pulmonary vasculature remains engorged with widespread reticulonodular interstitial prominence. Calcified granulomata are again demonstrated. Mild patch y bibasilar infiltrates are stable. Mediastinum is midline. Lines and tubes appear unchanged in pos ition. automation qa tester leads overlie the chest. IMPRESSION: Pulmonary vascular congestion, mild bibasilar infiltrates, and other findings are stable. POS: [facility]
[2018-09-02] MEDS: Pantoprazole 40 MG VIAL IVP SCH (09:12)
[2018-09-02] MEDS: Enoxaparin Sodium 40 MG/0.4 ML SYRINGE SC SCH (09:12)
[2018-09-02] MEDS: Ketorolac Tromethamine 30 MG/ML VIAL IVP PRN (09:13)
--- NOTE | 2018-09-02 13:53 | PRG ---
DATE OF SERVICE: 09/02/2018 SUBJECTIVE: The patient seems to be doing well, has no complaints. PHYSICAL EXAMINATION: VITAL SIGNS: On exam, temperature is 98.2, pulse , blood pressure 155/83, O2 sat generally in t he low to mid 90s. A 24-hour intake 3029, output 1870. HEENT: Unremarkable. NECK: No JVD. CHEST: Clear without wheezing. CARDIAC: S1 and S2, regular. ABDOMEN: Distended. Colostomy site looks good. Wound site looks good. EXTREMITIES: No edema. LABORATORY DATA: White blood cell count 6.6, hematocrit 31.6, platelet count 135 yesterday. Sodium 140, potassium 4.2, chloride 110, CO2 of 24, BUN 20, creatinine 0.8, glucose 151 today. ASSESSMENT: 1. Status post laparotomy. 2. Probable chronic obstructive pulmonary disease. 3. Question of low-grade alcohol withdrawal. PLAN: Looks good from a Pulmonary Critical Care standpoint, can probably be transferred out to the [facility]. We will defer to surgery on that. I will go ahead and reduce the steroid dose, as that could be affecting his mental status.
[2018-09-02] MEDS ORDERED: Cepastat Lozenges 1 LOZ PO PRN (14:16)
--- NOTE | 2018-09-02 16:30 | EKG ---
Test Reason : SESPSIS Blood Pressure : / mmHG Vent. Rate : 128 BPM Atrial Rate : 128 BPM P-R Int : 144 ms QRS Dur : 084 ms QT Int : 308 ms P-R-T Axes : 041 -12 042 degrees QTc Int : 449 ms Sinus tachycardia Moderate voltage criteria for LVH, may be normal variant Anteroseptal infarct , age undetermined Abnormal ECG Confirmed by MORRIS VALADEZ ([id number]), editorial manager AARON ASHFORD ([id number]) on 09/02/2018 4:29:54 PM Referred By: Confirmed By:MORRIS VALADEZ
[2018-09-02] MEDS: Carvedilol 3.125 MG TAB PO SCH (16:58)
--- NOTE | 2018-09-02 19:02 | PRG ---
DATE OF SERVICE: 09/02/2018 SUBJECTIVE: Ms. English is a 73-year-old man who is postop day #3 status post, Asmita's procedure fo r perforated acute sigmoid colon diverticulitis. The patient is doing well, reporting minimum abdominal pain today. The nasogastric tube is returning less than 300 mL of bile-tinged gastric effluent over the last 48 h ours. The patient denies any nausea or vomiting. Urinary output has been adequate for this patient's age. OBJECTIVE: VITAL SIGNS: Today included blood pressure 143/76, pulse is 88, respiratory rate is 23, temperature 98.9 degrees Fahrenheit, oxygen saturation 94% on 2 liters by nasal cannula oxygen. HEART: Reveals regular rate and rhythm, no murmurs or gallops auscultated. LUNGS: Clear to auscultation bilaterally. Breathing regular and unlabored. ABDOMEN: Soft and morbidly obese. Incision is intact, clean, and dry. Colostomy is viable with liq uid stool and gas. The patient has no peritoneal signs on examination. NEUROLOGIC: Reveals no focal deficits present. LABORATORY DATA: Today includes metabolic profile: Sodium 140, potassium 4.2, chloride is 110, bica rbonate 24, BUN 28, creatinine 0.83, glucose is 151. IMPRESSION: Postoperative day #3, status post Asmita's procedure for perforated sigmoid colon diverticulitis. The patient is hemodynamically stable. PLAN: He will be transferred to a general surgical floor where we will continue with his physical an d occupational therapy. Nasogastric tube will be removed and clear liquid diet initiated. Intravenous pain medicines will be discontinued and oral analgesics initiated. Above findings and plan discussed with patient who indicates understanding of information given. I cecille nswered his questions.
[2018-09-02] MEDS: Atorvastatin Calcium 40 MG TAB PO SCH (21:24)
[2018-09-02] MEDS: Lisinopril 5 MG TAB PO SCH (21:25)
[2018-09-03] MEDS: 1/2 NS w/KCL 20 mEq 1,000 ML IV SCH (00:05)
[2018-09-03] MEDS: Acetaminophen 1,000 MG in Premix Bag 1 BAG IVPB SCH (06:07)
[2018-09-03] MEDS: Nitroglycerin 2% Ointment 1 INCH/1 GM Packet TOP SCH ×3 (06:07→21:12)
[2018-09-03] MEDS: Piperacillin/Tazobactam 4.5 GM in Sodium Chloride 0.9% 100 ML IVPB SCH ×3 (06:08→17:45)
[2018-09-03] MEDS: Mometasone/Formoterol 120 PUFF INHALER INH SCH ×2 (06:28→19:00)
[2018-09-03 06:34] LABS: #Eosinphils 0.1 thou/uL (0.0-0.7); #Lymphocytes 0.8 thou/uL (1.20-3.40); #Monocytes 0.5 thou/uL (0.11-0.59); #Neutrophils 6.2 thou/uL (1.40-6.50); %Basophils 0.1 % (0.0-1.0); %Eosinophils 0.7 % (0.0-10.0); %Lymphocytes 10.7 % (21.0-51.0); %Monocytes 6.4 % (0.0-10.0); Hemoglobin 10.3 g/dL (14.0-18.0); Mean Corpuscular HGB CONC 32.8 g/dL (32.0-36.0); Mean Corpuscular Hemoglobin 30.2 pg (27.0-31.0); Mean Corpuscular Volume 91.9 fL (78.0-98.0); Mean Platelet Volume 6.8 fL (7.4-10.4); Platelet Count 162 thou/uL (130-400); RBC Distribution Width 12.5 % (11.5-14.5); Red Blood Cell (RBC) Count 3.41 mill/uL (4.70-6.10); White Blood Cell (WBC) Count 7.5 thou/uL (4.8-10.8)
[2018-09-03 06:48] LABS: Anion Gap 10 mmol/L (10-20); BUN (Urea Nitrogen) 27 mg/dL (8.4-25.7); Calc. Creatinine Clearance 120 mL/min (70-130); Calcium 7.9 mg/dL (7.8-10.44); Carbon Dioxide 24 mmol/L (23-31); Chloride 108 mmol/L (98-107); Estimated GFR-MDRD Greater than 90; Glucose 98 mg/dL (83-110); Phosphorus 2.9 mg/dL (2.3-4.7); Potassium 4.1 mmol/L (3.5-5.1); Sodium 138 mmol/L (136-145)
[2018-09-03] MEDS: Furosemide 40 MG/4 ML VIAL SLOW IVP SCH (08:30)
[2018-09-03] MEDS: Ketorolac Tromethamine 30 MG/ML VIAL IVP PRN (08:30)
[2018-09-03] MEDS: Pantoprazole 40 MG VIAL IVP SCH (08:30)
[2018-09-03] MEDS: Lisinopril 5 MG TAB PO SCH ×2 (08:33→21:11)
[2018-09-03] MEDS: Enoxaparin Sodium 40 MG/0.4 ML SYRINGE SC SCH (08:33)
[2018-09-03] MEDS: Carvedilol 3.125 MG TAB PO SCH ×2 (08:33→17:45)
[2018-09-03] MEDS ORDERED: traMADol HCl 50 MG TAB PO PRN (09:48)
[2018-09-03] MEDS: Ibuprofen 600 MG TAB PO SCH ×2 (10:13→17:44)
--- NOTE | 2018-09-03 11:09 | PRG ---
DATE OF SERVICE: 09/03/2018 SUBJECTIVE: Patient seems to be breathing okay. He has been moved up to the surgical floor. PHYSICAL EXAMINATION: VITAL SIGNS: On exam, temperature is 97.7, pulse 85, respirations 18, O2 sat 96% on 3 liters, blood pressure 162/88. HEENT: Unremarkable. LUNGS: Diminished, but clear breath sounds. CARDIAC: S1 and S2, regular. ABDOMEN: Soft. EXTREMITIES: No edema. LABORATORY DATA: White blood cell count 7.5, hematocrit 31.4, platelet count 162. Sodium 130, potas sium 4.1, chloride 108, CO2 of 24, BUN 27, creatinine 0.8, glucose 98. ASSESSMENT: 1. Status post laparotomy. 2. Chronic obstructive pulmonary disease. 3. Alcohol withdrawal. PLAN: I will go ahead and stop his steroids. We will continue the breathing treatments. He is bein g diuresed. He seems stable from a pulmonary standpoint.
[2018-09-03] MEDS: Acetaminophen 500 MG TAB PO SCH ×2 (11:28→17:45)
--- NOTE | 2018-09-03 16:36 | PRG-2 ---
DATE OF SERVICE: 09/03/2018 SUBJECTIVE: The patient is postop day 4 status post Asmita's procedure for perforated sigmoid colo n diverticulitis. The patient is doing well overnight. He tolerated his full liquid diet without is gustavo. His pain is controlled and he has been working with physical therapy. Pulmonology is discontin uing his steroids, but we will continue his breathing treatments for his COPD. Otherwise, the patien t remains stable. PHYSICAL EXAMINATION: VITAL SIGNS: Temperature is 98.2, heart rate 75, blood pressure 162/88, respirations 18, oxygen satu ration is 96% on 3 liters via nasal cannula. LUNGS: Clear to auscultation bilaterally. HEART: Regular rate and rhythm. ABDOMEN: Soft and nontender. His dressing was changed today and his incision is clean, dry and inta ct. Colostomy shows liquid stool and gas. LABORATORY FINDINGS: White blood cell count 7.5, hemoglobin 10.3, hematocrit 31.4, platelets 162,000 . Sodium 138, potassium 4.1, chloride 108, CO2 of 24, BUN 27, creatinine 0.79, magnesium 2.0, phosph orus 2.9. There are no radiographs to review this morning. ASSESSMENT AND PLAN: Status post exploratory laparotomy with Asmita's procedure for perforated div erticulitis. Plan will be to continue supportive care. Advance diet to regular and likely the patie nt will be stable for discharge within the next day or two. The evaluation and examination were done with Dr. Tolbert during rounds this morning.
--- NOTE | 2018-09-03 20:38 | EKG ---
Test Reason : Blood Pressure : / mmHG Vent. Rate : 136 BPM Atrial Rate : 136 BPM P-R Int : 128 ms QRS Dur : 084 ms QT Int : 346 ms P-R-T Axes : 000 019 096 degrees QTc Int : 520 ms Sinus tachycardia Septal infarct (cited on or before 19-APR-2010) Abnormal ECG When compared with ECG of 28-AUG-2018 22:29, (Unconfirmed) Questionable change in initial forces of Anteroseptal leads T wave inversion now evident in Lateral leads Confirmed by David BARRERA ([id number]) on 09/03/2018 8:37:57 PM Referred By: BOGDAN Confirmed By:David BARRERA
--- NOTE | 2018-09-03 20:57 | EKG ---
Test Reason : STAT Blood Pressure : / mmHG Vent. Rate : 078 BPM Atrial Rate : 078 BPM P-R Int : 164 ms QRS Dur : 088 ms QT Int : 366 ms P-R-T Axes : 069 025 213 degrees QTc Int : 417 ms Sinus rhythm with marked sinus arrhythmia with occasional Premature ventricular complexes Septal infarct (cited on or before 19-APR-2010) T wave abnormality, consider inferior ischemia T wave abnormality, consider anterolateral ischemia Abnormal ECG When compared with ECG of 30-AUG-2018 11:39, (Unconfirmed) Significant changes have occurred Confirmed by David BARRERA ([id number]) on 09/03/2018 8:56:56 PM Referred By: BOGDAN Confirmed By:David BARRERA
--- NOTE | 2018-09-03 21:08 | EKG ---
Test Reason : Blood Pressure : / mmHG Vent. Rate : 072 BPM Atrial Rate : 072 BPM P-R Int : 154 ms QRS Dur : 090 ms QT Int : 434 ms P-R-T Axes : 049 012 189 degrees QTc Int : 475 ms Sinus rhythm with Premature atrial complexes Septal infarct , age undetermined Abnormal ECG Confirmed by David BARRERA ([id number]) on 09/03/2018 9:08:02 PM Referred By: JAS Confirmed By:David BARRERA
[2018-09-03] MEDS: Tamsulosin HCl 0.4 MG CAP PO SCH (21:11)
[2018-09-03] MEDS: Atorvastatin Calcium 40 MG TAB PO SCH (21:11)
[2018-09-04] MEDS: Acetaminophen 500 MG TAB PO SCH ×4 (00:40→19:20)
[2018-09-04] MEDS: Piperacillin/Tazobactam 4.5 GM in Sodium Chloride 0.9% 100 ML IVPB SCH ×5 (00:41→23:40)
[2018-09-04] MEDS: Ibuprofen 600 MG TAB PO SCH ×2 (02:18→15:34)
[2018-09-04 04:24] LABS: Anion Gap 12 mmol/L (10-20); BUN (Urea Nitrogen) 25 mg/dL (8.4-25.7); Calc. Creatinine Clearance 125 mL/min (70-130); Carbon Dioxide 25 mmol/L (23-31); Chloride 104 mmol/L (98-107); Estimated GFR-MDRD Greater than 90; Glucose 93 mg/dL (83-110); Potassium 3.9 mmol/L (3.5-5.1); Sodium 137 mmol/L (136-145)
[2018-09-04] MEDS: Furosemide 40 MG/4 ML VIAL SLOW IVP SCH (06:38)
[2018-09-04] MEDS: Nitroglycerin 2% Ointment 1 INCH/1 GM Packet TOP SCH ×3 (06:39→21:29)
[2018-09-04] MEDS: Mometasone/Formoterol 120 PUFF INHALER INH SCH ×2 (09:14→19:38)
[2018-09-04] MEDS: Pantoprazole 40 MG VIAL IVP SCH (09:19)
[2018-09-04] MEDS: Lisinopril 5 MG TAB PO SCH ×2 (09:19→21:28)
[2018-09-04] MEDS: Enoxaparin Sodium 40 MG/0.4 ML SYRINGE SC SCH (09:19)
[2018-09-04] MEDS: Carvedilol 3.125 MG TAB PO SCH ×2 (09:19→16:03)
--- NOTE | 2018-09-04 09:35 | PRG ---
DATE OF SERVICE: 09/04/2018 He is on Ventimask this morning. I think it is only because he finds nasal cannula uncomfortable. PHYSICAL EXAMINATION: VITAL SIGNS: Temperature 97.8, pulse 80, respirations 20, O2 sat 96%, blood pressure 163/97. HEENT: Unremarkable. NECK: No JVD. LUNGS: Diminished breath sounds throughout. CARDIAC: S1 and S2 regular. ABDOMEN: Distended. Bowel sounds hypoactive. EXTREMITIES: No edema. LABORATORY DATA: Sodium 137, potassium 3.9, chloride 104, CO2 25, BUN 25, creatinine 0.7, glucose 93 . ASSESSMENT: 1. Status post laparotomy. 2. Chronic obstructive pulmonary disease. 3. Some degree of alcohol withdrawal. PLAN: Continue breathing treatments and oxygen. Currently being diuresed and seems to be doing bett er with that. We will continue to follow.
--- NOTE | 2018-09-04 20:05 | PRG ---
DATE OF SERVICE: 09/04/2018 SUBJECTIVE: Issa English is doing well today. He is tolerating his diet. He is on oxygen 2 liters. He was not on oxygen at home. OBJECTIVE: VITAL SIGNS: 97.9 degrees, 72, 93, 129/64. He is undergoing colostomy teaching. LUNGS: Clear to auscultation. Coarse breath sounds. No wheezing. CARDIAC: Regular rate and rhythm. ABDOMEN: Soft. Bowel sounds present. Wound VAC changed. Colostomy healthy. LABORATORY DATA: White count 7, hemoglobin 10.3. Basic metabolic profile is unremarkable. Patholog y reveals perforated diverticulitis, margins. No dysplasia or atypia. ASSESSMENT AND PLAN: 1. The patient is doing well. Pulmonary Medicine to see him for his chronic obstructive pulmonary d isease, Dr. Molina. Breathing treatments, oxygen as needed. He may need to go home with oxygen. W e will defer to Dr. Molina's opinion. 2. EKG changes, elevated troponins. Followed by Dr. Bui. Aspirin and nitrate have been added. It was Dr. Bui's opinion that he will need a cardiac catheterization prior to discharge. Repeat e chocardiogram performed today (initial one was of poor quality), ejection fraction 40%-45%, LV size m ildly increased, difficult study, mild mitral regurgitation, trace tricuspid regurgitation. 3. Consider rehabilitation stay. The patient is working with therapy. He is ambulating. We will s ee if he qualifies or would benefit from that, we will defer to Physical Therapy and Rehab. Anticipa te discharge later in the week after completion of cardiac evaluation by Dr. Bui.
--- NOTE | 2018-09-04 21:14 | PRG ---
DATE OF SERVICE: 09/04/2018 HISTORY: Mr. English had an excellent diuresis this morning. PHYSICAL EXAMINATION: VITAL SIGNS: Blood pressure 129/64, pulse 72. The I&O indicated that he put out 5.6 liters this mor loy. LUNGS: Clear. CARDIAC: Normal S1, normal S2. ABDOMEN: Soft, nontender. EXTREMITIES: Reduced edema. ASSESSMENT: 1. Status post peritonitis from ruptured diverticula. 2. Probably multivessel coronary disease. 3. Echocardiogram done on the indicated ejection fraction of 40%-45%, although the images at lola t point were suboptimal. There may have been another study done the following day, not certain about that. These images were somewhat suboptimal. PLAN: 1. Continue diuretics. 2. ALL inhibitors. 3. Beta blockers. 4. Aspirin. 5. Reduced nonsteroidal anti-inflammatory stories. 6. At some point, we will need cardiac catheterization. Consider doing that prior to being discharg ed. He probably has severe multivessel coronary disease. The other option would be bring back as an outpatient. For now, continue treating as an inpatient.
[2018-09-04] MEDS: Ibuprofen 200 MG TAB PO SCH (21:28)
[2018-09-04] MEDS: Atorvastatin Calcium 40 MG TAB PO SCH (21:28)
[2018-09-04] MEDS: Tamsulosin HCl 0.4 MG CAP PO SCH (21:29)
[2018-09-05] MEDS: Acetaminophen 500 MG TAB PO SCH ×5 (00:03→23:37)
[2018-09-05 04:03] LABS: Anion Gap 10 mmol/L (10-20); BUN (Urea Nitrogen) 25 mg/dL (8.4-25.7); Calc. Creatinine Clearance 115 mL/min (70-130); Carbon Dioxide 30 mmol/L (23-31); Chloride 102 mmol/L (98-107); Estimated GFR-MDRD Greater than 90; Glucose 104 mg/dL (83-110); Potassium 3.8 mmol/L (3.5-5.1); Sodium 138 mmol/L (136-145)
[2018-09-05] MEDS: Nitroglycerin 2% Ointment 1 INCH/1 GM Packet TOP SCH ×3 (05:33→21:04)
[2018-09-05] MEDS: Ibuprofen 200 MG TAB PO SCH ×3 (05:33→21:04)
[2018-09-05] MEDS: Piperacillin/Tazobactam 4.5 GM in Sodium Chloride 0.9% 100 ML IVPB SCH (05:33)
[2018-09-05] MEDS: Mometasone/Formoterol 120 PUFF INHALER INH SCH ×2 (07:05→18:38)
--- NOTE | 2018-09-05 09:09 | PRG ---
DATE OF SERVICE: 09/05/2018 Issa Garcia is doing well today. He is sitting up in bed watching TV. He is not wearing his ox ygen. His color is good. PHYSICAL EXAMINATION: VITAL SIGNS: Temperature 98.6 degrees, heart rate 80, 128/72. LUNGS: Clear to auscultation, no wheezing, no rhonchi. CARDIAC: Regular rate and rhythm. ABDOMEN: Soft, bowel sounds present. Wound VAC in place. Colostomy healthy with stool in the bag. LABORATORY: This morning his sodium is 138, potassium 3.8, BUN 10, creatinine 0.83. Accu-Chek 93 to 104. He is tolerating a regular diet. Chest x-ray PA and lateral ordered, pending. ASSESSMENT AND PLAN: 1. Doing well after perforated diverticulitis and peritonitis. IV antibiotics have been discontinue d. Intravenous medications have been discontinued. He is on oral baseline medications. Dr. Ruy Bui has seen him based on his presenting EKG, elevated troponins and recent echocardiogram. It is felt that he needs cardiac catheterization before he leaves. He would probably not be compliant in followup and this needs to be done before leaving. Dr. Ruy Bui will talk to the patient about this and schedule that. As far as discharge, the patient can go home with physical therapy or rehab. We will await rehab assessment. He is ambulating with some assistance. He has a wound VAC that if he goes home, he will need wound VAC [facility] versus outpatient [facility] appointment. 2. Chronic obstructive pulmonary disease, tobacco abuse. He was counseled on tobacco cessation.
--- NOTE | 2018-09-05 09:58 | RAD ---
PA AND LATERAL CHEST: History: Dyspnea. Post op. Weakness. COPD. Comparison: 09-02-18 FINDINGS: Heart size is borderline. Some increased density which projects over the right hilar and infrahilar r egion with blunting to the right costophrenic angle. On the lateral view there is pleural based densi ty which is probably loculated effusion. I cannot definite exclude the possibility that some of this related to pleural based mass as there is a slightly mass like appearance to some of the changes on t he lateral view. The left lung appears clear. IMPRESSION: 1. Probable loculated right sided effusion, somewhat unusual in appearance as some of the density pro jects over the right hilar and infrahilar regions. I cannot exclude some type of pleural based mass. I would recommend follow up short term chest films if this density does not resolve then consideratio n for CT. POS: [facility]
[2018-09-05] MEDS: Enoxaparin Sodium 40 MG/0.4 ML SYRINGE SC SCH (10:49)
[2018-09-05] MEDS: Lisinopril 5 MG TAB PO SCH ×2 (10:50→21:04)
[2018-09-05] MEDS: Carvedilol 3.125 MG TAB PO SCH ×2 (10:51→16:38)
[2018-09-05] MEDS: Furosemide 40 MG/4 ML VIAL SLOW IVP SCH (10:51)
[2018-09-05] MEDS ORDERED: Communication Order-Pharmacy FS SCH (13:00)
--- NOTE | 2018-09-05 13:13 | PRG ---
DATE OF SERVICE: 09/05/2018 Mr. English is breathing okay. No chest pain or pressure. He is able to lay supine now without shortn ess of breath. He had very good urine output yesterday. The I&O was -5 liters yesterday. He only has had modest urinary output today. According to the note s his weight went from 236 to 222. PHYSICAL EXAMINATION: VITAL SIGNS: Blood pressure 128/72, pulse 74. LUNGS: Clear. CARDIAC: Normal S1, normal S2. ABDOMEN: Soft, nontender. He has a colostomy bag in the left lower quadrant. EXTREMITIES: Reveal only 1+ edema. Femoral pulses are strong bilaterally. The distal pulses are di minished. PERTINENT LABORATORY DATA: Hemoglobin is 10.3. Potassium is 3.8, creatinine is 0.83. ASSESSMENT: 1. Status post peritonitis due to perforated viscus (diverticula). 2. Obesity. 3. Congestive heart failure, likely chronic, systolic, with ejection fraction appears to be approxim ately 40%, although the images are suboptimal. 4. EKG suggests severe underlying coronary disease, suspect he has multivessel disease. PLAN: Proceed to cardiac catheterization tomorrow. I discussed risks of stroke, heart attack, iodin e allergy, loss of blood supply to the leg or kidney, stent thrombosis, stent restenosis, emergency b ypass surgery. He understands and wishes to proceed.
[2018-09-05] MEDS: Tamsulosin HCl 0.4 MG CAP PO SCH (21:04)
[2018-09-05] MEDS: Atorvastatin Calcium 40 MG TAB PO SCH (21:04)
[2018-09-06] MEDS: Acetaminophen 500 MG TAB PO SCH ×3 (05:10→18:38)
[2018-09-06] MEDS: Ibuprofen 200 MG TAB PO SCH (05:11)
[2018-09-06] MEDS: Nitroglycerin 2% Ointment 1 INCH/1 GM Packet TOP SCH ×3 (05:11→21:21)
[2018-09-06] MEDS: Carvedilol 3.125 MG TAB PO SCH (05:18)
[2018-09-06] MEDS ORDERED: Diazepam 5 MG TAB PO SCH (06:00)
[2018-09-06] MEDS ORDERED: Sodium Chloride 0.9% 1,000 ML IV SCH ×2 (06:00→09:53)
[2018-09-06] MEDS: Mometasone/Formoterol 120 PUFF INHALER INH SCH ×2 (06:12→18:43)
[2018-09-06] MEDS ORDERED: Lidocaine 1% (PF) 30 ML VIAL ONE (08:06)
[2018-09-06] MEDS ORDERED: Midazolam HCl 2 mg/2 ml Vial ONE (08:55)
[2018-09-06] MEDS ORDERED: Fentanyl 100 MCG/2 ML VIAL ONE (08:56)
[2018-09-06] MEDS ORDERED: traMADol HCl 50 MG TAB PO PRN (09:51)
[2018-09-06] MEDS ORDERED: Acetaminophen/Codeine 30-300mg Tablet PO PRN (09:51)
[2018-09-06] MEDS ORDERED: Nitroglycerin 0.4 MG TAB (25 Tab Bottle) SL PRN (09:51)
[2018-09-06] MEDS ORDERED: Sodium Chloride 0.9% 200 ML IV PRN (10:00)
[2018-09-06] MEDS: traMADol HCl 50 MG TAB PO PRN ×2 (10:48→21:21)
[2018-09-06] MEDS ORDERED: Iopamidol 370 76% 50 ML VIAL FS ONE (11:29)
[2018-09-06] MEDS ORDERED: Iopamidol 370 76% 100 ML VIAL ONE (11:29)
--- NOTE | 2018-09-06 13:00 | PRG ---
DATE OF SERVICE: 09/06/2018 HISTORY: Issa English is a 73-year-old male patient on the floor, tolerating his diet, doing well. H e is scheduled for a cardiac catheterization which by the time this dictation has been done Dr. Geovanni Bui perform this. Dr. Benja Pelayo will see him. He has an occluded LAD without distal runoff. T he plan at this time is to monitor him on telemetry tonight, probably discharge home tomorrow and fol low up in my office in about 2 weeks. He will need to have a repeat cardiac catheterization with Dr. Ruy Bui in 3 months to see if he has any bypassable disease. The patient did not suffer a car diac event during this hospitalization. His troponins were slightly elevated, felt to be demand isch emia. Dr. Bui will adjust his cardiac medications tomorrow and plans to discharge him home with o utpatient wound VAC. He will follow up in my office in about 2-3 weeks. He will need colostomy care and home health to help him with that help him with the wound VAC. PHYSICAL EXAMINATION: LUNGS: Clear to auscultation. CARDIAC: Regular rate and rhythm without murmur or gallop. ABDOMEN: Soft, nontender. Colostomy healthy. Midline wound healthy with a VAC. EXTREMITIES: Unremarkable. LABORATORY DATA: None today. Base met normal yesterday. ASSESSMENT AND PLAN: 1. Coronary artery disease. This may or may not be bypassable. We will await reevaluation in the [facility] with Dr. Bui 2. Colostomy status; colostomy care, home health nursing wound care, wound VAC care. Follow up in m y office in 2-3 weeks and anticipate discharge home tomorrow. 3. Tobacco abuse. Encouraged tobacco cessation. 4. Future colostomy reversal after cardiac reevaluation.
[2018-09-06] MEDS: Lisinopril 5 MG TAB PO SCH ×2 (13:23→21:20)
[2018-09-06] MEDS ORDERED: Carvedilol 6.25 MG TAB PO SCH (17:00)
--- NOTE | 2018-09-06 20:32 | CON ---
DATE OF CONSULTATION: 09/06/2018 HISTORY OF PRESENT ILLNESS: This is a 73-year-old gentleman without much medical care except for gou t prior to this admission when he had a perforated diverticulum and underwent colostomy. He was note d to have some EKG changes and a slight bump in his troponin, prompting a cardiac catheterization, wh ich showed an occluded LAD and rather poor distal visualization, as well as a small single obtuse mar ginal that was free of disease. His right coronary artery was a dominant system with a large postero lateral; however, his PDA had a high-grade stenosis at its origin. Unfortunately, the patient is a 1 .5 to 2-ywfc-v-day smoker. PAST MEDICAL HISTORY: Significant only for gout. SOCIAL HISTORY: The patient is , not accompanied by his at the time of this visit. ALLERGIES: He has no known allergies. MEDICATIONS: Current medications prior to discharge include Flomax 0.4 a day, lisinopril 5 b.i.d., C oreg 6.25 b.i.d., Lipitor 40 a day, aspirin 1 a day. PAST SURGICAL HISTORY: Cholecystectomy and a current procedure for the colostomy. PHYSICAL EXAMINATION: GENERAL: Alert and cooperative gentleman, 5 feet 9 inches, 222 pounds. NECK: Right carotid bruit. LUNGS: Increased chest AP diameter. No wheezes or rhonchi on this exam. CARDIAC: Regular rate and rhythm. No murmurs. ABDOMEN: Obese. Open midline wound with a wound VAC in place and an ostomy in the left lower quadra nt. EXTREMITIES: Lower extremities with palpable pulses. No peripheral edema. Upper extremities with p alpable pulses. PLAN: At this time, it is unclear whether his LAD could be grafted and a repeat catheterization in 3 months with smoking cessation and medical management would be appropriate. If his LAD appears to be bypassable, then consider LAD, PDA grafting. I have gone over this with the patient and a family fr vilma who is present.
[2018-09-06] MEDS: Atorvastatin Calcium 40 MG TAB PO SCH (21:20)
[2018-09-06] MEDS: Tamsulosin HCl 0.4 MG CAP PO SCH (21:21)
--- NOTE | 2018-09-06 21:56 | ULT ---
CAROTID DOPPLER: 09/06/18 Ultrasound doppler study is performed on the extracranial carotid arteries with color doppler, spectr al analysis and velocity recordings. INDICATIONS: Right carotid bruit. FINDINGS: Ultrasound images show moderate echogenic plaque in both bulges and proximal ICAs. Velocity recordings show normal velocities in the internal carotid arteries bilaterally. However, there is mild increased velocity in the left common carotid artery recorded up to 150 cm/s. This is indicative of hemodynamically significant stenosis. Vertebrals show antegrade flow. IMPRESSION: 1. Moderate plaque seen bilaterally. 2. Mild increased velocities in the left common carotid artery. recommend further evaluation wit h CT angio of neck. Code T POS: ABISAI
[2018-09-07] MEDS: Acetaminophen 500 MG TAB PO SCH ×3 (01:47→11:07)
[2018-09-07] MEDS: Nitroglycerin 2% Ointment 1 INCH/1 GM Packet TOP SCH (05:54)
[2018-09-07] MEDS: Mometasone/Formoterol 120 PUFF INHALER INH SCH (06:57)
--- NOTE | 2018-09-07 07:51 | PRG ---
DATE OF SERVICE: 09/07/2018 Mr. English is doing well today. He is tolerating his diet. He is off his oxygen. PHYSICAL EXAMINATION: LUNGS: Clear to auscultation, no wheezing. CARDIAC: Regular rate and rhythm without murmur or gallop. ABDOMEN: Soft, nontender. Colostomy healthy. Wound VAC in place. EXTREMITIES: Unremarkable. LABORATORY DATA: None this morning. The patient's pain is well controlled on Tylenol, ibuprofen, and Ultram. The plan is to discharge home today with a wound VAC. We will remove his central line. He will foll ow up with Dr. Bui in the next few weeks. He will follow up with me in 2 weeks. Home health nurs ing has been arranged for colostomy care and wound VAC care.
[2018-09-07] MEDS: Ibuprofen 600 MG TAB PO SCH (08:19)
[2018-09-07] MEDS: Lisinopril 5 MG TAB PO SCH (08:26)
--- NOTE | 2018-09-07 08:37 | PRG ---
DATE OF SERVICE: 09/07/2018 Mr. English is doing well today. No chest pain or shortness of breath. PHYSICAL EXAMINATION: VITAL SIGNS: Blood pressure at 4:00 a.m. was 127/60, most recent blood pressure 153/67, pulse 74 reg ular. LUNGS: Clear. CARDIAC: Normal S1, normal S2. ABDOMEN: Soft, nontender. EXTREMITIES: No edema. ASSESSMENT: 1. Coronary artery disease with what appears to be chronically occluded left anterior descending whi ch fills faintly via collaterals. No obstructive circumflex disease in the posterior descending ada ry lesion. Ejection fraction 40%. 2. History of smoking. I had a discussion with him about how critical it is that he not smoke at al l. 3. Medicines at time of discharge from a cardiac standpoint Aspirin 81 mg a day, atorvastatin 40 mg daily, carvedilol 12.5 mg twice daily, lisinopril 5 mg twice a day. PLAN: He will come back and see us in the office in a couple of weeks. Would consider repeating cat heterization in 3 months if the LAD fills better and is a potential target for bypass that would be a n option. At the time of catheterization, the filling of the LAD was not adequate to tell whether th at is a bypassable vessel or not. That may improve over time. We need to discuss with the patient jared tala he wishes to consider surgery. He initially indicated he did not wish to do that. For now th emil are the medicines. Prognosis guarded. Prognosis is poor, if he smokes.
[2018-09-07] MEDS ORDERED: Carvedilol 6.25 MG TAB PO SCH (09:00)
[2018-09-07 11:27] VITALS: BP 143/84; TEMP 98.6
--- NOTE | 2018-09-07 11:49 | DIS ---
DATE OF ADMISSION: 08/28/2018 DATE OF DISCHARGE: 09/07/2018 DISCHARGE MEDICATIONS: Tylenol 1000 mg p.o. q.i.d. p.r.n., Motrin 600 mg [id number] p.o. q.i.d . p.r.n. pain, Ultram 50 #25, 2 refills, 1-2 p.o. q.i.d. p.r.n. pain. Resume his home medications, F divya 0.4 mg a day, nitroglycerin sublingual p.r.n., lisinopril 5 mg b.i.d., carvedilol 12.5 mg b.i.d ., aspirin 81 mg daily, atorvastatin, Lipitor 40 mg at bedtime, can resume home medications, indometh acin 25 mg b.i.d. instead of Motrin, Dulera inhaler b.i.d. Follow up with Dr. Kelly in 2-3 weeks. Follow up with Dr. Bui 3-4 weeks. Patient has had demand ischemia on admission. Slightly elevated troponin, but no evidence of myocard ial infarction. He had occluded LAD on cardiac catheterization without demonstration of runoff to omalley pport CABG and will need to follow up with Dr. Bui in the next few months to consider repeat jamison terization. Follow up with Dr. Mandujano in 2-3 weeks. Follow up wound and remove claudia. Wound VAC care. Consid er colostomy reversal in 3 months after further cardiac evaluation. DISCHARGE DIAGNOSES: Perforated diverticulitis with peritonitis, status post Asmita's procedure an d colostomy on 08/30/2018. Postoperative mechanical ventilation. Consultation with Dr. Kelly for COPD. Consultation with Dr. Natali carcamo for abnormal troponins and EKG, diagnosed demand ischemia without myocardial infarction, cardiac catheterization prior to discharge performed, results noted above and plan as noted above. HISTORY: A 73-year-old male who presented with diverticulitis. CAT scan revealed a contained perfor ation. His abdomen was soft. Vital signs normal, but he deteriorated in the next 24 hours requiring emergent operation after repeat CAT scan demonstrating diffuse pneumoperitoneum. He underwent a Antwan tmann's procedure, colostomy. He was taken to the ventilator overnight, was weaned and extubated by Pulmonary Medicine. He actually did fairly well. He resumed GI function and diet and is being disch arged home at this time with home health nursing for helping with colostomy care and wound VAC and fo llow up as noted above.
== END 2018-09-07 13:31 | disposition home or self-care (01) | DRG 329 ==
LOC: ERS 22:19 → SURG A 08-29 00:26 → CCU 08-30 11:53 → SURG A 09-02 14:13 → 2NO 09-06 09:51
PROVIDERS: ADMIT Specialist; ATTEND Specialist
PROC: 0DTN0ZZ Resection of Sigmoid Colon, Open Approach (ICD-10-PCS; principal; 2018-08-29)
PROC: 0D1M0Z4 Bypass Descending Colon to Cutaneous, Open Approach (ICD-10-PCS; 2018-08-29)
PROC: 3E0M05Z Introduction of Adhesion Barrier into Peritoneal Cavity, Open Approach (ICD-10-PCS; 2018-08-29)
PROC: 0BH17EZ Insertion of Endotracheal Airway into Trachea, Via Natural or Artificial Opening (ICD-10-PCS; 2018-08-30)
PROC: 5A1945Z Respiratory Ventilation, 24-96 Consecutive Hours (ICD-10-PCS; 2018-08-30)
PROC: 4A023N7 Measurement of Cardiac Sampling and Pressure, Left Heart, Percutaneous Approach (ICD-10-PCS; 2018-09-06)
PROC: B2111ZZ Fluoroscopy of Multiple Coronary Arteries using Low Osmolar Contrast (ICD-10-PCS; 2018-09-06)
PROC: B2151ZZ Fluoroscopy of Left Heart using Low Osmolar Contrast (ICD-10-PCS; 2018-09-06)
DX: K57.00 Diverticulitis of small intestine with perforation and abscess without bleeding (principal); J96.00 Acute respiratory failure, unspecified whether with hypoxia or hypercapnia; I24.8 Other forms of acute ischemic heart disease; F10.239 Alcohol dependence with withdrawal, unspecified; J44.1 Chronic obstructive pulmonary disease with (acute) exacerbation; I50.22 Chronic systolic (congestive) heart failure; F17.210 Nicotine dependence, cigarettes, uncomplicated; Z68.32 Body mass index [BMI] 32.0-32.9, adult; M10.9 Gout, unspecified; I25.82 Chronic total occlusion of coronary artery; I25.119 Atherosclerotic heart disease of native coronary artery with unspecified angina pectoris; E66.01 Morbid (severe) obesity due to excess calories; Z79.82 Long term (current) use of aspirin; Z91.19 Patient's noncompliance with other medical treatment and regimen; I11.0 Hypertensive heart disease with heart failure
CPT/HCPCS: 36415; 36416; 71045; 71046; 71275; 74022; 74177; 76942; 80048; 80053; 80061; 82550; 82553; 82805; 83036; 83605; 83735; 84100; 84484; 85025; 87040; 88307; 93005; 93010; 93306; 93458; 93880; 94002; 94003; 94640; 94760; 96365; 96375; 96376; 99152; 99153; C1769; C9113; G8978-GP-CN; G8979-GP-CJ; G8987-GO-CM; G8988-GO-CJ; J0131; J0360; J1644; J1650; J1885; J1940; J2001; J2060; J2250; J2270; J2543; J2704; J2765; J2920; J3010; J7050; J7620; Q0162; S0020

== ENCOUNTER 2018-12-20 09:21 | Day surgery (SDC) | payer MEDICARE ==
[2018-12-19 14:52] VITALS: BMI 29.7
[2018-12-20] MEDS ORDERED: Fleet Enema 133 ML BOT FS ONE (11:45)
[2018-12-20] MEDS ORDERED: PROPOFOL 200 MG/20 ML VIAL ONE (13:22)
[2018-12-20] MEDS ORDERED: HYDROcodone/Acetaminophen 5/325 mg Tablet ONE (13:24)
--- NOTE | 2018-12-20 14:04 | OP ---
DATE OF PROCEDURE: 12/20/2018 PREPROCEDURE DIAGNOSES: 1. Colorectal cancer screening before ostomy takedown. 2. Recent episode of diverticulitis perforation. POSTOPERATIVE DIAGNOSES: 1. A 1.5 cm flat polyp in the residual rectum Asmita's pouch at 15 cm from the anorectal verge, removed by saline assisted snare polypectomy and area tattooed. There were 2 small polyps of 3 mm in size. Next, that were removed and put in the same jar. 2. A 1 cm flat polyp at 10 cm from the anorectal verge removed by saline assisted snare polypectomy and estimated pathology was 1 piece, that site was tattooed as well. 3. Two diminutive polyps in the rectum, removed by snare polypectomy and submitted to Pathology. 4. Internal hemorrhoids. 5. Evaluation of the colon through the ostomy, there were 2 descending colon polyps, 5 mm size, removed and submitted to Pathology and 2 ascending colon polyps, 1 near the ileocecal valve, 3 to 5 mm in size, removed and submitted to Pathology. RECOMMENDATIONS: 1. Await histopathology before takedown of ostomy. This is scheduled for January 02, we should get the pathology back before then. 2. Depending on pathology, that will determine timing of next colonoscopy. ANESTHESIA: TIVA. DESCRIPTION OF PROCEDURE: The patient was informed of the risks, benefits, and possible complications of endoscopy including perforation, reaction to medication, and aspiration and informed consent was obtained. The patient was brought to the Endoscopy Suite, where he was sedated in a gradual fashion. Once he was comfortable, he was placed in a left lateral decubitus position. Rectal examination was performed, revealed some firm poop balls and the endoscope was advanced in the rectum and there were some large polyps noted within 10 to 15 cm at the anorectal verge. Polyps then were removed manually. The endoscope was then readvanced. In 15 cm, there was a 1.5 cm polyp, which was raised with saline assistance and then removed by snare polypectomy. Two small polyps about 3 mm in size near this were removed as well. A tattoo was placed in this area itself. We need to get back to this area depending on the pathology. At 10 cm, another 1 cm flat polyp was removed with saline assisted snare polypectomy, that site was tattooed as well. In the rectum, there was 2 small polyps, 5 mm less in size, removed by snare polypectomy and submitted for Pathology. Retroflexed views revealed internal hemorrhoids. No other lesions were seen. There was good hemostasis. After the scope was removed, the patient was placed supine. His ostomy bag was removed and a digital exam was performed in ostomy, which was normal. The endoscope was advanced to the descending colon ostomy and advanced to the cecum. The prep was good. The ileocecal valve and appendiceal orifice identified and photographed. Two small polyps were noted in the ascending colon, removed by snare polypectomy and submitted to Pathology. In the descending colon, two polyps removed and submitted to Pathology as well. These were all less than 5 mm in size. No other lesions were seen. There was some mild diverticulosis coli. The scope was removed. The patient tolerated the procedure well with no complications. Job ID: [id number]
== END 2018-12-20 13:39 | disposition home or self-care (01) ==
LOC: SDC 09:21
PROVIDERS: ATTEND Internal Medicine Gastroenterology
PROC: 0DBK8ZX Excision of Ascending Colon, Via Natural or Artificial Opening Endoscopic, Diagnostic (ICD-10-PCS; principal; 2018-12-20)
PROC: 0DBM8ZX Excision of Descending Colon, Via Natural or Artificial Opening Endoscopic, Diagnostic (ICD-10-PCS; 2018-12-20)
PROC: 3E0H8GC Introduction of Other Therapeutic Substance into Lower GI, Via Natural or Artificial Opening Endoscopic (ICD-10-PCS; 2018-12-20)
PROC: 0DBP8ZX Excision of Rectum, Via Natural or Artificial Opening Endoscopic, Diagnostic (ICD-10-PCS; 2018-12-20)
PROC: 0DBE8ZX Excision of Large Intestine, Via Natural or Artificial Opening Endoscopic, Diagnostic (ICD-10-PCS; 2018-12-20)
DX: Z12.11 Encounter for screening for malignant neoplasm of colon (principal); D12.0 Benign neoplasm of cecum; D12.6 Benign neoplasm of colon, unspecified; K62.1 Rectal polyp; K64.8 Other hemorrhoids; I25.10 Atherosclerotic heart disease of native coronary artery without angina pectoris; J44.9 Chronic obstructive pulmonary disease, unspecified; I10 Essential (primary) hypertension; E78.00 Pure hypercholesterolemia, unspecified; Z87.891 Personal history of nicotine dependence; Z79.82 Long term (current) use of aspirin; Z79.899 Other long term (current) drug therapy; Z90.49 Acquired absence of other specified parts of digestive tract; Z93.3 Colostomy status
CPT/HCPCS: 88305

== ENCOUNTER 2019-01-01 06:43 | Outpatient (CLI) | payer MEDICARE ==
[2019-01-01 12:15] LABS: #Eosinphils 0.5 thou/uL (0.0-0.7); #Lymphocytes 1.1 thou/uL (1.20-3.40); #Monocytes 0.5 thou/uL (0.11-0.59); #Neutrophils 4.4 thou/uL (1.40-6.50); %Basophils 0.1 % (0.0-1.0); %Eosinophils 7.9 % (0.0-10.0); %Lymphocytes 17.5 % (21.0-51.0); %Monocytes 6.9 % (0.0-10.0); %Neutrophils 67.6 % (42.0-75.0); Hemoglobin 12.4 g/dL (14.0-18.0); Mean Corpuscular HGB CONC 33.5 g/dL (32.0-36.0); Mean Corpuscular Hemoglobin 28.8 pg (27.0-31.0); Mean Corpuscular Volume 86.1 fL (78.0-98.0); Mean Platelet Volume 7.1 fL (7.4-10.4); Platelet Count 161 thou/uL (130-400); RBC Distribution Width 13.6 % (11.5-14.5); White Blood Cell (WBC) Count 6.5 thou/uL (4.8-10.8)
[2019-01-01 12:51] LABS: Hemoglobin A1c 5.6 % (4.0-6.0)
[2019-01-01 12:53] LABS: Anion Gap 16 mmol/L (10-20); BUN (Urea Nitrogen) 26 mg/dL (8.4-25.7); Calc. Creatinine Clearance 0 mL/min (70-130); Calcium 9.2 mg/dL (7.8-10.44); Carbon Dioxide 23 mmol/L (23-31); Chloride 106 mmol/L (98-107); Estimated GFR-MDRD 51; Glucose 106 mg/dL (83-110); Potassium 4.6 mmol/L (3.5-5.1); Sodium 140 mmol/L (136-145)
== END 2019-01-01 06:44 | disposition home or self-care (01) ==
LOC: LABBT 06:43
PROVIDERS: ATTEND Specialist
DX: Z01.818 Encounter for other preprocedural examination (principal); Z93.3 Colostomy status
CPT/HCPCS: 80048; 83036; 85025; 93005; 93010

== ENCOUNTER 2019-01-03 05:41 | Day surgery (SDC) | payer MEDICARE ==
--- NOTE | 2018-12-27 15:18 | HP ---
HISTORY OF PRESENT ILLNESS: Issa English is a 73-year-old male patient who is followed by Dr. Bui, who was recently admitted 08/29/2018 at [facility] for complaints of abdominal pain. He had a white count of 7, hemoglobin of 15. CAT scan revealing changes of acute diverticulitis. The patient reports having had a colonoscopy in 1999 [place] this city. His exam at that time revealed tenderness in the left lower quadrant suprapubic. The patient's pain worsened overnight and became diffuse and he was taken to the operating room on 08/30/2018, undergoing laparotomy, mobilization of splenic flexure, resection of the sigmoid colon, colostomy, Asmita's pouch marked with a 2-0 Prolene. Seprafilm was used. Wound left partially open with healing by secondary intention with wound VAC application. During the hospitalization, echocardiogram revealed 40% to 45% ejection fraction, trace tricuspid regurgitation, mild mitral regurgitation, Dr. Bui had been following him and Dr. Kumar and Dr. Burns saw him during that hospitalization in addition. The patient postoperatively has discomfort. Troponin levels were checked on admission, although he had no chest pain or pressure, and they were slightly elevated. Dr. Bui saw the patient in consultation regarding these and felt he needs a stress test at a later date. The patient had a cardiac catheterization prior to discharge, which demonstrating occluded LAD with poor distal visualization as well as a small single obtuse marginal that was free of disease. The right coronary artery was a dominant system with a large posterolateral. However, his PDA had a high-grade stenosis at the origin. The patient did smoke a pack and half to two pack per day and Dr. Pelayo in consultation felt that it was unclear whether his LAD could be grafted or repeat catheterization treatment should be done. Certainly smoking cessation is essential. Possible bypass grafting could be considered. The patient was discharged on 09/07/2018, discharged on aspirin 81 mg a day, atorvastatin 40 mg a day, carvedilol 12.5 mg twice a day, lisinopril 5 mg twice a day, and smoking cessation recommended. He was to follow up with Dr. Bui in the future. The patient presents now interested in colostomy reversal. He has an appointment with Dr. Carney for a colonoscopy. Consideration of colostomy reversal after cardiac clearance could be given. He has an appointment with Dr. Bui in the next week. ALLERGIES: NONE. SOCIAL HISTORY: Tobacco; he states he smokes occasionally and has cut down smoking. Alcohol socially every 2-3 days. MEDICATIONS: 1. Tramadol. 2. Atorvastatin. 3. Carvedilol. 4. Lisinopril. 5. Flomax. 6. Aspirin daily. PAST SURGICAL HISTORY: Cholecystectomy and more recent colon resection and colostomy and Asmita's procedure. PAST MEDICAL HISTORY: Gout, coronary artery disease, followed by Dr. Bui to be re-evaluated for his coronary artery disease in the next few weeks. Previous essential recommendations to tobacco cessation given. FAMILY HISTORY: Noncontributory. PHYSICAL EXAMINATION: VITAL SIGNS: He is 208 pounds, 69 inches, 30 BMI. Blood pressure 143/64, 69 heart rate. HEAD, EARS, EYES, NOSE AND THROAT: Unremarkable. LUNGS: Clear to auscultation. CARDIAC: Regular rate and rhythm without murmur or gallop. ABDOMEN: Soft. Colostomy present. Well-healed midline incision. EXTREMITIES: Unremarkable. No ankle edema. ASSESSMENT AND PLAN: 1. Undesired colostomy. After cardiac clearance and after colonoscopy, the patient could undergo a bowel prep, undergo general anesthesia for laparoscopic possible open colostomy reversal anastomosis. Risks of infection, bleeding, reoperation, leakage, etc, discussed and questions answered. 2. Coronary artery disease. He is followed by Dr. Bui. He had previous cardiac catheterization in August during the hospitalization. He presented with elevated troponins at the time of his diverticulitis episode and required emergent operation. The patient underwent a cardiac catheterization prior to discharge home and plan is to re-evaluate him in 3 months and he may need a repeat cardiac catheterization prior to colostomy reversal. Await Dr. Bui's assessment. 3. Tobacco abuse. I have encouraged tobacco cessation. 4. On Flomax. 5. Dyslipidemia. Job ID: [id number]
[2019-01-01 11:06] VITALS: BMI 29.5
[2019-01-03] MEDS ORDERED: Lidocaine 1% (PF) 30 ML VIAL ONE (06:27)
[2019-01-03] MEDS ORDERED: Fentanyl 100 MCG/2 ML VIAL ONE ×3 (06:27→06:45)
[2019-01-03] MEDS ORDERED: Midazolam HCl 2 mg/2 ml Vial ONE (06:27)
[2019-01-03] MEDS ORDERED: Bupivacaine HCl 0.5%/Epinephrine 1:200,000/PF 30 ml Vial ONE ×2 (06:31)
[2019-01-03] MEDS ORDERED: Dexamethasone 4 mg/ml Vial ONE (06:32)
[2019-01-03] MEDS ORDERED: Ketorolac Tromethamine 30 MG/ML VIAL ONE (07:11)
[2019-01-03] MEDS ORDERED: Meropenem 2 GM, Admixture Fee 1 EACH in Sodium Chloride 0.9% 100 ML IVPB SCH (07:15)
--- NOTE | 2019-01-03 08:55 | PRG ---
DATE OF SERVICE: 01/03/2019 SUBJECTIVE: The patient is a 73-year-old male, previous tobacco abuse, hypertension, known coronary artery disease, underwent September 2019, colostomy, Asmita's procedure for diverticulitis. During that hospitalization, he had a cardiac event, evaluated by Cardiology, underwent cardiac catheterization revealing distal LAD disease. He was seen by Dr. Pelayo and felt to have a poor target or questionable distal target for revascularization. Plan at that time was to repeat his cardiac catheterization in 3 months. The patient since that time has quit smoking and has been compliant on his medications. He saw Dr. Bui's PA on 12/25/2018, to discuss these issues prior to undergoing colostomy reversal. The patient has had a colonoscopy and proctoscopy in preparation for colostomy reversal. After visiting with LUCIA Paige, Dr. Bui's a Cardiology physician personal banking assistant, the patient stated that he did not want a cardiac bypass and want to proceed. However, after undergoing a bowel prep yesterday and been on liquids, he presents this morning for colostomy reversal laparoscopic. After discussion with him, informing him of his moderate cardiac risks for a general anesthetic for colostomy reversal, he states that he was unaware of this risk and would prefer to undergo cardiac catheterization if that would improve his cardiac risk and status. I have therefore talked to Dr. Ruy Bui who will arrange to see him in his office and arrange further cardiac evaluation and consideration prior to undergoing elective laparoscopic colostomy reversal. The patient will be discharged home at this time and we will await Cardiology evaluation and clearance prior to further consideration of general anesthetic, and colostomy reversal. Job ID: [id number]
== END 2019-01-03 08:22 | disposition home or self-care (01) ==
LOC: UNDOADMIN 05:41 → SURG A 05:41 → SDC 05:41 → UNDODISIN 08:22 → SDC 08:22 → EDSTATUS 10:15
PROVIDERS: ATTEND Specialist
DX: Z43.3 Encounter for attention to colostomy (principal); I25.10 Atherosclerotic heart disease of native coronary artery without angina pectoris; F17.210 Nicotine dependence, cigarettes, uncomplicated; M10.9 Gout, unspecified; E78.5 Hyperlipidemia, unspecified; I10 Essential (primary) hypertension; I65.23 Occlusion and stenosis of bilateral carotid arteries; I49.3 Ventricular premature depolarization; E78.00 Pure hypercholesterolemia, unspecified; J44.9 Chronic obstructive pulmonary disease, unspecified; Z53.8 Procedure and treatment not carried out for other reasons; Z79.82 Long term (current) use of aspirin; Z79.899 Other long term (current) drug therapy; Z90.49 Acquired absence of other specified parts of digestive tract
CPT/HCPCS: 80048; 83036; 85025; 93005; 93010; J0131; J0670; J1100; J1885; J2001; J2185; J2250; J3010; J7050

== ENCOUNTER 2019-01-09 05:45 | Day surgery (SDC) | payer MEDICARE ==
[2019-01-08 12:03] VITALS: BMI 29.5
[2019-01-09] MEDS ORDERED: Diazepam 5 MG TAB ONE (06:02)
[2019-01-09] MEDS ORDERED: Fentanyl 100 MCG/2 ML VIAL ONE (06:40)
[2019-01-09] MEDS ORDERED: Midazolam HCl 2 mg/2 ml Vial ONE (06:41)
[2019-01-09] MEDS ORDERED: Iopamidol 370 76% 100 ML VIAL ONE (09:12)
--- NOTE | 2019-01-09 14:06 | DIS ---
DATE OF ADMISSION: 01/09/2019 DATE OF DISCHARGE: 01/09/2019 Mr. English underwent cardiac catheterization today, and the plan is to have a heart surgery. Dr. Pelayo visited with Mr. English, who is to be released home to come back as an outpatient to have this done. Fortunately, he has quit smoking. He will go back on the same medicines as prior to the catheterization. It looks like the right coronary artery could be done in the posterolateral branch and the posterior descending artery. The distal LAD looks like it will probably be done, although it is a diffusely diseased vessel. The patient to be brought back in for that surgery as the patient wishes to delay this as mentioned. Job ID: [id number]
== END 2019-01-09 13:50 | disposition home or self-care (01) ==
LOC: CCL 05:45
PROVIDERS: ATTEND Internal Medicine Cardiovascular Disease
PROC: 4A023N7 Measurement of Cardiac Sampling and Pressure, Left Heart, Percutaneous Approach (ICD-10-PCS; principal; 2019-01-09)
PROC: B2101ZZ Fluoroscopy of Single Coronary Artery using Low Osmolar Contrast (ICD-10-PCS; 2019-01-09)
DX: I25.10 Atherosclerotic heart disease of native coronary artery without angina pectoris (principal); I25.82 Chronic total occlusion of coronary artery; I11.0 Hypertensive heart disease with heart failure; I50.22 Chronic systolic (congestive) heart failure; I24.8 Other forms of acute ischemic heart disease; I49.3 Ventricular premature depolarization; J44.9 Chronic obstructive pulmonary disease, unspecified; M10.9 Gout, unspecified; E78.00 Pure hypercholesterolemia, unspecified; Z90.49 Acquired absence of other specified parts of digestive tract; Z87.891 Personal history of nicotine dependence; Z98.890 Other specified postprocedural states
CPT/HCPCS: 76942; 93458; 99152; 99153; C1769; J1644; J2250; J3010; Q9967

== ENCOUNTER 2019-06-08 11:00 | Inpatient (IN) | payer MEDICARE ==
[2019-06-08 13:12] LABS: Hemoglobin 12.4 g/dL (14.0-18.0); Mean Corpuscular HGB CONC 33.1 g/dL (32.0-36.0); Mean Corpuscular Hemoglobin 29.4 pg (27.0-31.0); Mean Corpuscular Volume 88.8 fL (78.0-98.0); Mean Platelet Volume 7.2 fL (7.4-10.4); Platelet Count 133 thou/uL (130-400); RBC Distribution Width 12.7 % (11.5-14.5); Red Blood Cell (RBC) Count 4.23 mill/uL (4.70-6.10); White Blood Cell (WBC) Count 6.8 thou/uL (4.8-10.8)
[2019-06-08 13:33] LABS: Anion Gap 14 mmol/L (10-20); BUN (Urea Nitrogen) 31 mg/dL (8.4-25.7); Calc. Creatinine Clearance 0 mL/min (70-130); Calcium 9.4 mg/dL (7.8-10.44); Carbon Dioxide 24 mmol/L (23-31); Chloride 105 mmol/L (98-107); Estimated GFR-MDRD 37; Glucose 105 mg/dL (83-110); Potassium 5.5 mmol/L (3.5-5.1); Sodium 137 mmol/L (136-145)
[2019-06-11] MEDS ORDERED: Albumin 5% 250 ML ONE (06:06)
[2019-06-11] MEDS ORDERED: Heparin 10,000 UNITS/1 ML VIAL 30,000 UNITS in Sodium Chloride 0.9% 1,000 ML FS SCH (07:00)
[2019-06-11] MEDS ORDERED: Fentanyl 250 MCG/5 ML VIAL ONE ×2 (07:16)
[2019-06-11] MEDS ORDERED: Midazolam HCl 2 mg/2 ml Vial ONE (07:16)
[2019-06-11 11:59] LABS: Actual Bicarbonate (HCO3a) 20.7 mEq/L (22-28); Base Excess (BEa) -6.4 mEq/L (-2.0 to +3.0); CO2 Tension 48.8 mmHg (35.0-45.0); Calcium, Ionized 1.11 mmol/L (1.12-1.30); Carboxyhemoglobin (COHb) 0.5 gm% (0.0-3.0); Hemoglobin (Hb) 9.9 g/dL (14.0-18.0); O2 Tension (PaO2) 207.2 mmHg (> 70.0); Potassium - ABG Lab 5.38 mmol/L (3.70-5.30)
[2019-06-11 12:01] LABS: Puncture Site ALINE; pH, Arterial 7.25 (7.35-7.45)
[2019-06-11] MEDS ORDERED: Ondansetron PF 4 MG/2 ML Vial IVP PRN (12:01)
[2019-06-11] MEDS ORDERED: Potassium Chloride 20 MEQ/100 ML PREMIX BAG IVPB PRN (12:01)
[2019-06-11] MEDS ORDERED: Promethazine HCl 25 MG/ML VIAL IM PRN (12:01)
[2019-06-11] MEDS ORDERED: niCARdipine 25 MG in Sodium Chloride 0.9% 250 ML 240 ML IVPB PRN (12:01)
[2019-06-11] MEDS ORDERED: HYDROcodone/Acetaminophen 5/325 mg Tablet PO PRN (12:01)
[2019-06-11] MEDS ORDERED: Morphine 4 MG/ML VIAL SLOW IVP PRN (12:01)
[2019-06-11] MEDS ORDERED: Hetastarch 6% 500 ML 500 ML IVPB PRN (12:01)
[2019-06-11] MEDS ORDERED: DOPamine 400 MG/D5W 250 ML 250 ML IVPB PRN (12:01)
[2019-06-11] MEDS ORDERED: Acetaminophen 325 MG TAB PO PRN (12:01)
[2019-06-11] MEDS ORDERED: Post-Op Insulin Drip Protocol IVPB ONE (12:01)
[2019-06-11] MEDS ORDERED: Nitroglycerin 50 MG/250 ML BOT 250 ML IVPB PRN (12:01)
[2019-06-11] MEDS ORDERED: Norepinephrine 8 MG/0.9% NS 250 ML IVPB PRN (12:01)
[2019-06-11] MEDS ORDERED: Bisacodyl 5 MG TAB PO PRN (12:01)
[2019-06-11] MEDS ORDERED: Bisacodyl 10 MG SUPP PR PRN (12:01)
[2019-06-11] MEDS ORDERED: Mag-Al 1200 mg/1200 mg/30 ML UDCUP PO PRN (12:01)
[2019-06-11] MEDS ORDERED: Guaifenesin DM 100-10/5 ML UDCUP PO PRN (12:01)
[2019-06-11] MEDS ORDERED: Fentanyl 100 MCG/2 ML VIAL ONE (12:10)
--- NOTE | 2019-06-11 12:11 | RAD ---
Portable frontal chest radiograph: 06/11/2019 COMPARISON: 09/05/2018 HISTORY: Evaluate chest following open heart surgery FINDINGS: Endotracheal tube and nasogastric tube in place. Right vascular catheter present, distal ti p overlying the region of the proximal right atrium. Drainage catheters overlie the mediastinum. Midline sternotomy wires are noted. Supine imaging limits assessment for pneumothorax and pleural flu id. Mild blunting of the left costophrenic angle may signify small volume left pleural fluid. No focal consolidation or alveolar edema. IMPRESSION: Postoperative findings as detailed above.
[2019-06-11] MEDS ORDERED: Magnesium 2 GM/50 ML 2 GM in Premix Bag 1 BAG IVPB SCH (12:15)
[2019-06-11] MEDS ORDERED: Dextrose 5% in Water 1,000 ML IV PRN (12:20)
[2019-06-11] MEDS ORDERED: Insulin Regular 300 UNITS/3 ML VIAL SC PRN (12:20)
[2019-06-11] MEDS ORDERED: HUMULIN R 100 UNITS in Sodium Chloride 0.9% 100 ML IVPB SCH (12:20)
[2019-06-11] MEDS ORDERED: Dextrose 50% Abboject 50 ML SYRINGE SLOW IVP PRN (12:20)
[2019-06-11 12:22] LABS: INR-International Normal Ratio 1.4; PTT 32.5 SEC (22.9-36.1); Prothrombin Time 17.1 SEC (12.0-14.7)
[2019-06-11 12:32] LABS: #Eosinphils 0.3 thou/uL (0.0-0.7); #Lymphocytes 1.5 thou/uL (1.20-3.40); #Monocytes 0.8 thou/uL (0.11-0.59); #Neutrophils 9.9 thou/uL (1.40-6.50); %Basophils 0.2 % (0.0-1.0); %Eosinophils 2.3 % (0.0-10.0); %Lymphocytes 11.8 % (21.0-51.0); %Monocytes 6.5 % (0.0-10.0); %Neutrophils 79.2 % (42.0-75.0); Hemoglobin 9.5 g/dL (14.0-18.0); Mean Corpuscular Hemoglobin 29.3 pg (27.0-31.0); Mean Corpuscular Volume 88.8 fL (78.0-98.0); Platelet Count 118 thou/uL (130-400); RBC Distribution Width 12.8 % (11.5-14.5); Red Blood Cell (RBC) Count 3.24 mill/uL (4.70-6.10); White Blood Cell (WBC) Count 12.5 thou/uL (4.8-10.8)
[2019-06-11] MEDS: Lactated Ringer's 1,000 ML IV SCH (12:34)
[2019-06-11 12:40] LABS: Anion Gap 10 mmol/L (10-20); BUN (Urea Nitrogen) 29 mg/dL (8.4-25.7); Calc. Creatinine Clearance 57 mL/min (70-130); Calcium 8.1 mg/dL (7.8-10.44); Carbon Dioxide 21 mmol/L (23-31); Chloride 113 mmol/L (98-107); Estimated GFR-MDRD 41; Glucose 155 mg/dL (83-110); Potassium 5.4 mmol/L (3.5-5.1); Sodium 139 mmol/L (136-145)
[2019-06-11] MEDS ORDERED: CEFAZOLIN 2 GM in Premix Bag 1 BAG IVPB SCH (14:00)
[2019-06-11 14:23] LABS: Actual Bicarbonate (HCO3a) 20.5 mEq/L (22-28); Base Excess (BEa) -6.4 mEq/L (-2.0 to +3.0); CO2 Tension 46.9 mmHg (35.0-45.0); Calcium, Ionized 1.12 mmol/L (1.12-1.30); Carboxyhemoglobin (COHb) 0.8 gm% (0.0-3.0); Hemoglobin (Hb) 10.9 g/dL (14.0-18.0); O2 Tension (PaO2) 82.5 mmHg (> 70.0); Potassium - ABG Lab 5.18 mmol/L (3.70-5.30); pH, Arterial 7.26 (7.35-7.45)
[2019-06-11 14:35] LABS: ALV-art Gradient 144.075 (0-20); Puncture Site ALINE
--- NOTE | 2019-06-11 14:41 | OP ---
DATE OF PROCEDURE: 06/11/2019 PREOPERATIVE DIAGNOSIS: Coronary artery disease. PROCEDURE PERFORMED: Coronary artery bypass graft x3, good quality left internal mammary artery to a 1.5 to 2 mm left anterior descending proximal to a diagonal branch. There was no definitive scar in the anterior apex of the heart visible. A saphenous vein to a 2 mm PDA and to a heavily diseased plaque 2 mm posterolateral. SITE LEASING AGENT: Ko Gong MD TRANSFUSION: None. DESCRIPTION OF PROCEDURE: After adequate anesthesia had been obtained, the patient was prepped and draped. Midline sternotomy was performed harvesting the left internal mammary artery and then heparinizing the patient. The mammary was divided distally, passed posterior to the thymus gland. Pericardium was incised to allow it to access to the LAD. Simultaneously, Dr. Gong did an endovascular vein harvest of the left greater saphenous vein. The aorta and right atrium were cannulated and the patient had a very deep chest. Cardiopulmonary bypass was begun. Vessels were inspected for grafting. The heart was not enlarged. Aorta was cross-clamped and a liter of cold blood cardioplegia was given through the aortic root. The PDA was opened and saphenous vein anastomosed here in an end-to-side fashion. Segment of vein was then not usable and the second segment of vein was then anastomosed to the posterolateral. When the posterolateral was opened, the creamy material exited from this vessel and it was extended proximally and distally for a total of about a centimeter of arteriotomy. Saphenous vein was anastomosed there after passing a 1.5 mm probe proximally and distally. Following this, the LAD was opened and the left internal mammary artery anastomosed to it. Cross-clamp was removed. The partial occluding clamp placed and the PDA vein graft was anastomosed to the aortic root and the clamp removed. End-to-side anastomosis between the posterolateral vein graft and the PDA vein graft was performed near the acute margin of the heart. Distal anastomoses were then inspected. The patient weaned from cardiopulmonary bypass. Cannula was removed and the aortic cannulation site did require a Prolene suture for hemostasis. The patient was then reversed with protamine. LAD and PDA anastomoses were checked for hemostasis, and the posterolateral was also checked. Following this, 2 mediastinal drains were placed and the sternum was then reapproximated with #7 interrupted wire as well as 3 zip ties using vancomycin paste on the sternal edges, platelet rich blood and platelet poor plasma. Subcutaneous tissue and skin were closed in layers. Job ID: [id number]
--- NOTE | 2019-06-11 15:24 | CON ---
DATE OF CONSULTATION: 06/11/2019 SERVICE: Pulmonary Medicine. REASON FOR CONSULT: ICU patient. HISTORY OF PRESENT ILLNESS: The patient is a 74-year-old white male with past medical history significant for chronic kidney disease and coronary artery disease. He has been in his usual state of health until. He was being worked up in the outpatient setting, was discovered to have coronary artery disease because of intermittent episodes of shortness of breath and chest pressure. Ultimately, he was found to have operative disease. He presented for an elective outpatient procedure. He cannot provide any additional elements of the history at this point because he is currently under sedation. He does not look to have any distress or discomfort. He is having periodic breathing where he would become tachypneic for a short period of time and then completely ride the ventilator for a period of time. During the tachypneic spells, he will wake up and appear agitated. That being said, he will drift that when he drifts back off to sleep, he quits breathing above the assistance of the ventilator. PAST MEDICAL HISTORY: 1. Coronary artery disease. 2. Chronic kidney disease, stage 3. 3. Gout. 4. Dyslipidemia. 5. Hypertension. 6. Benign prostate hyperplasia. 7. Tobacco abuse. PAST SURGICAL HISTORY: 1. Cholecystectomy. 2. Colon resection with a Asmita's procedure. 3. Coronary artery bypass graft. 4. Cardiac catheterization. FAMILY HISTORY: Noncontributory. SOCIAL HISTORY: Up until recently, he was smoking on a daily basis. He drinks alcohol every 2-3 days. He previously denied any illicit drugs. ALLERGIES: NO KNOWN DRUG ALLERGIES. MEDICATIONS: List of his inpatient medications was reviewed. No specific updates were made at this time. REVIEW OF SYSTEMS: Cannot be obtained as the patient is currently under the influence of anesthesia. PHYSICAL EXAMINATION: VITAL SIGNS: Afebrile, pulse 59, blood pressure 106/61, respirations 15, and saturation 100% on 39% FiO2 and a PEEP of 5. GENERAL: The patient is intubated and sedated. HEENT: Normocephalic and atraumatic. Sclerae white. Conjunctivae pink. Oral mucosa is moist without lesions. LUNGS: Good air entry. There is a prolonged expiratory phase. Rhonchi and crackles are present dependently, but I do not appreciate any wheezing. HEART: Bradycardic. Irregular. ABDOMEN: Soft, nontender, and nondistended. Bowel sounds are positive. MUSCULOSKELETAL: No cyanosis or clubbing. No pitting in the bilateral lower extremities. NEUROLOGIC: Grossly nonfocal. LABORATORY DATA: WBC 12.5, hemoglobin 9.5, and platelets 118,000. INR 1.4. A pH 7.26, pCO2 of 49, and pO2 of 82. Creatinine 1.64, which is near baseline, BUN 29, and potassium 5.4. Basic metabolic profile is otherwise unremarkable. IMAGING STUDIES: Chest x-ray demonstrates new sternotomy wires. Endotracheal tube is in good position. There is a right central line likely coming from subclavian origin, terminating at the cavoatrial junction. Left-sided pleural effusion is noted. There is a mediastinal drain, an enteric catheter coursing below the level of the diaphragm and out of the field of view. ASSESSMENT: 1. Acute hypoxic respiratory failure. 2. Coronary artery disease, status post coronary artery bypass graft, postop day 0. 3. Central sleep apnea, witnessed at bedside, likely a function of anesthesia. 4. Chronic diastolic heart failure. 5. Chronic obstructive pulmonary disease without current exacerbation. DISCUSSION AND PLAN: We will schedule the patient nebulized medications. At this point, he is having significant central events. As such, I would like for him to wake up more fully from anesthesia before we consider extubating him. This may require him to be on mechanical ventilator for an additional night. Routine postop care will be continued. Pulmonary/Critical Care will continue to follow along while the patient remains in this location. CRITICAL CARE TIME: 30 minutes. Job ID: [id number] MTDD
[2019-06-11] MEDS ORDERED: Acetaminophen 1,000 MG in Premix Bag 1 BAG IVPB SCH (15:30)
[2019-06-11] MEDS ORDERED: Sodium Bicarb 50 MEQ/50 ML VIAL ONE ×2 (15:32→16:18)
[2019-06-11] MEDS ORDERED: Sodium Bicarb 50 MEQ/50 ML VIAL IVP SCH (15:45)
[2019-06-11] MEDS: CEFAZOLIN 2 GM in Premix Bag 1 BAG IVPB SCH ×2 (16:11→23:20)
[2019-06-11] MEDS ORDERED: Mannitol 12.5 GM/50 ML ONE (16:18)
[2019-06-11] MEDS ORDERED: Rocuronium Bromide 10 MG/ML (10ML VIAL) ONE (16:18)
[2019-06-11] MEDS ORDERED: Calcium Chloride 1 GM/10 ML Abboject SYRINGE ONE (16:18)
[2019-06-11] MEDS ORDERED: Lidocaine 2% PF 100 mg/5 ml Syringe ONE (16:18)
[2019-06-11] MEDS ORDERED: PHENYLEPHRINE-NS 100 MCG/ML 10 ML SYRINGE ONE (16:18)
[2019-06-11] MEDS ORDERED: Cardioplegic Soln 1,000 ML BAG ONE (16:18)
[2019-06-11] MEDS ORDERED: Papaverine 60 MG/2 ML VIAL ONE (16:18)
[2019-06-11] MEDS ORDERED: Heparin 30,000 units/30 ml VIAL ONE (16:18)
[2019-06-11] MEDS ORDERED: Potassium Chloride 60 MEQ/30 ML VIAL ONE (16:18)
[2019-06-11] MEDS ORDERED: Protamine Sulfate 250 MG/25 ML VIAL ONE (16:18)
[2019-06-11] MEDS ORDERED: Heparin 5,000 UNITS/ML VIAL ONE (16:18)
[2019-06-11] MEDS ORDERED: Aminocaproic Acid 5 GM/20 ML VIAL ONE (16:18)
[2019-06-11] MEDS ORDERED: Thrombin 5000 UNITS/5 ML VIAL ONE (16:18)
[2019-06-11] MEDS ORDERED: Magnesium 5 GM/10 ML VIAL ONE (16:18)
[2019-06-11] MEDS ORDERED: Ondansetron PF 4 MG/2 ML Vial ONE (16:18)
[2019-06-11] MEDS ORDERED: PROPOFOL 200 MG/20 ML VIAL ONE (16:18)
[2019-06-11 17:05] LABS: Actual Bicarbonate (HCO3a) 20.5 mEq/L (22-28); Base Excess (BEa) -4.4 mEq/L (-2.0 to +3.0); CO2 Tension 37.1 mmHg (35.0-45.0); Calcium, Ionized 1.08 mmol/L (1.12-1.30); Carboxyhemoglobin (COHb) 1.1 gm% (0.0-3.0); Hemoglobin (Hb) 10.5 g/dL (14.0-18.0); O2 Tension (PaO2) 97.4 mmHg (> 70.0); Potassium - ABG Lab 5.14 mmol/L (3.70-5.30); pH, Arterial 7.36 (7.35-7.45)
[2019-06-11 17:06] LABS: ALV-art Gradient 120.035 (0-20); Puncture Site ALINE
--- NOTE | 2019-06-11 17:21 | EKG ---
Test Reason : POST CABG Blood Pressure : / mmHG Vent. Rate : 065 BPM Atrial Rate : 065 BPM P-R Int : 000 ms QRS Dur : 076 ms QT Int : 448 ms P-R-T Axes : 054 021 050 degrees QTc Int : 465 ms Sinus rhythm with 1st degree A-V block with Premature supraventricular complexes Septal infarct (cited on or before 19-APR-2010) Nonspecific ST-T changes Abnormal ECG When compared with ECG of 05-SEP-2018 10:58, Premature supraventricular complexes are now Present [place] interval has decreased Questionable change in initial forces of Anteroseptal leads ST no longer depressed in Lateral leads T wave inversion no longer evident in Anterolateral leads Confirmed by DR. Alicia DO ([id number]) on 06/11/2019 5:21:27 PM Referred By: EVARISTO Confirmed By:DR. Alicia DO
[2019-06-11] MEDS: Fentanyl 100 MCG/2 ML VIAL SLOW IVP PRN ×3 (17:42→21:50)
[2019-06-11 17:43] LABS: Hemoglobin 10.3 g/dL (14.0-18.0)
[2019-06-11 17:57] LABS: Potassium 5.1 mmol/L (3.5-5.1)
[2019-06-11] MEDS: Atorvastatin Calcium 40 MG TAB PO SCH (20:08)
[2019-06-11] MEDS: Famotidine/PF 20 mg/2ml Vial SLOW IVP SCH (20:08)
[2019-06-11] MEDS: HYDROcodone/Acetaminophen 5/325 mg Tablet PO PRN (21:53)
[2019-06-12] MEDS: Fentanyl 100 MCG/2 ML VIAL SLOW IVP PRN ×3 (01:10→10:44)
[2019-06-12] MEDS: Lactated Ringer's 1,000 ML IV SCH (03:13)
[2019-06-12] MEDS: HYDROcodone/Acetaminophen 5/325 mg Tablet PO PRN ×4 (03:54→20:52)
[2019-06-12 05:03] LABS: #Eosinphils 0.1 thou/uL (0.0-0.7); #Lymphocytes 1.3 thou/uL (1.20-3.40); #Neutrophils 9.6 thou/uL (1.40-6.50); %Basophils 0.2 % (0.0-1.0); %Eosinophils 0.4 % (0.0-10.0); %Lymphocytes 10.9 % (21.0-51.0); %Monocytes 8.5 % (0.0-10.0); %Neutrophils 79.9 % (42.0-75.0); Hemoglobin 10.1 g/dL (14.0-18.0); Mean Corpuscular HGB CONC 32.9 g/dL (32.0-36.0); Mean Corpuscular Hemoglobin 29.4 pg (27.0-31.0); Mean Corpuscular Volume 89.4 fL (78.0-98.0); Mean Platelet Volume 7.1 fL (7.4-10.4); Platelet Count 148 thou/uL (130-400); RBC Distribution Width 12.8 % (11.5-14.5); Red Blood Cell (RBC) Count 3.44 mill/uL (4.70-6.10)
[2019-06-12 05:22] LABS: Anion Gap 10 mmol/L (10-20); BUN (Urea Nitrogen) 29 mg/dL (8.4-25.7); Calc. Creatinine Clearance 56 mL/min (70-130); Calcium 8.5 mg/dL (7.8-10.44); Carbon Dioxide 24 mmol/L (23-31); Chloride 110 mmol/L (98-107); Estimated GFR-MDRD 39; Glucose 111 mg/dL (83-110); Potassium 4.4 mmol/L (3.5-5.1); Sodium 140 mmol/L (136-145)
[2019-06-12] MEDS: CEFAZOLIN 2 GM in Premix Bag 1 BAG IVPB SCH (08:00)
--- NOTE | 2019-06-12 09:03 | RAD ---
PORTABLE CHEST: HISTORY: Postop open heart surgery. COMPARISON: Prior day's study. FINDINGS: Heart size is within normal limits. Right-sided central line and chest tubes remain unchanged in pos ition. Lungs remain clear of any infiltrates. IMPRESSION: Stable chest. POS: OFF
[2019-06-12] MEDS: Famotidine/PF 20 mg/2ml Vial SLOW IVP SCH ×2 (09:44→20:52)
[2019-06-12] MEDS: Aspirin 325 MG TAB PO SCH (09:44)
--- NOTE | 2019-06-12 10:02 | PRG ---
DATE OF SERVICE: 06/12/2019 SUBJECTIVE: The patient is status post coronary artery bypass surgery. Seen in the ICU. He was scheduled to undergo surgery for his colostomy revision, but was sent to Cardiology for cardiac workup and clearance. He had multiple issues as well outlined tobacco abuse, hypertension, respiratory failure, diverticulitis. OBJECTIVE: VITAL SIGNS: This morning, reveal a blood pressure 134/71, pulse 78, saturations are 92%, respiratory rate 18. CHEST: Decreased breath sounds. No wheezing. CARDIAC: Normal S1, S2. No gallops. ABDOMEN: No masses. IMAGING STUDIES: X-ray is clear. LABORATORY DATA: Creatinine 1.71, probably at his baseline. White count is 12,000, H and H unremarkable. Platelet count is normal. IMPRESSION: Status post coronary artery bypass grafting, morbid obesity, chronic obstructive pulmonary disease, respiratory failure, probably sleep apnea, status post diverticulitis, lap. PLAN: Appears to be stable at this stage. Continue present observation in the ICU. He is on schedule neb treatments, supportive care. Probably, needs an outpatient sleep study and a baseline pulmonary function test. Job ID: [id number]
--- NOTE | 2019-06-12 13:27 | PRG ---
DATE OF SERVICE: 06/12/2019 SUBJECTIVE: Mr. English is doing well postoperatively. OBJECTIVE: VITAL SIGNS: His blood pressure is 110 systolic, his pulse is 110 and sinus. LUNGS: Clear. CARDIAC: Normal S1, normal S2. ABDOMEN: Soft, nontender. EXTREMITIES: Minimal edema. ASSESSMENT: 1. Coronary artery disease, status post bypass surgery. 2. Mild sinus tachycardia. PLAN: 1. Low-dose beta blockers. 2. Statin. 3. Aspirin. 4. We will follow with you. 5. We will begin statin therapy. Job ID: [id number]
[2019-06-12] MEDS ORDERED: Carvedilol 3.125 MG TAB PO SCH (17:00)
[2019-06-12] MEDS: hydrALAZINE 20 MG/ML VIAL SLOW IVP PRN (17:37)
[2019-06-12] MEDS: Atorvastatin Calcium 40 MG TAB PO SCH (20:55)
[2019-06-13 05:29] LABS: #Eosinphils 0.1 thou/uL (0.0-0.7); #Lymphocytes 1.1 thou/uL (1.20-3.40); #Monocytes 0.7 thou/uL (0.11-0.59); #Neutrophils 6.8 thou/uL (1.40-6.50); %Basophils 0.4 % (0.0-1.0); %Eosinophils 1.5 % (0.0-10.0); %Lymphocytes 12.2 % (21.0-51.0); %Monocytes 8.1 % (0.0-10.0); %Neutrophils 77.8 % (42.0-75.0); Hemoglobin 9.6 g/dL (14.0-18.0); Mean Corpuscular HGB CONC 32.7 g/dL (32.0-36.0); Mean Corpuscular Hemoglobin 29.4 pg (27.0-31.0); Mean Corpuscular Volume 89.9 fL (78.0-98.0); Mean Platelet Volume 6.8 fL (7.4-10.4); Platelet Count 111 thou/uL (130-400); RBC Distribution Width 12.9 % (11.5-14.5); Red Blood Cell (RBC) Count 3.26 mill/uL (4.70-6.10); White Blood Cell (WBC) Count 8.7 thou/uL (4.8-10.8)
[2019-06-13 05:36] LABS: Anion Gap 11 mmol/L (10-20); BUN (Urea Nitrogen) 30 mg/dL (8.4-25.7); Calc. Creatinine Clearance 65 mL/min (70-130); Calcium 8.6 mg/dL (7.8-10.44); Carbon Dioxide 25 mmol/L (23-31); Chloride 107 mmol/L (98-107); Estimated GFR-MDRD 46; Glucose 128 mg/dL (83-110); Potassium 4.4 mmol/L (3.5-5.1); Sodium 139 mmol/L (136-145)
[2019-06-13] MEDS: hydrALAZINE 20 MG/ML VIAL SLOW IVP PRN (06:17)
[2019-06-13] MEDS ORDERED: Carvedilol 3.125 MG TAB PO SCH (07:49)
--- NOTE | 2019-06-13 08:16 | RAD ---
CHEST: Date: 06/13/19 COMPARISON: 06/12/19. HISTORY: Status post open heart surgery. FINDINGS: Single view of the chest shows a normal sized cardiomediastinal silhouette. Mediastinal drains and ce ntral venous catheter are unchanged in position. The patient is status post sternotomy. There is no e vidence of consolidation, mass, or pleural effusion. IMPRESSION: No evidence of acute cardiopulmonary disease. POS: [facility]
[2019-06-13] MEDS ORDERED: Acetaminophen 325 MG TAB PO PRN (08:18)
[2019-06-13] MEDS ORDERED: Mag-Al 1200 mg/1200 mg/30 ML UDCUP PO PRN (08:18)
[2019-06-13] MEDS ORDERED: Bisacodyl 5 MG TAB PO PRN (08:18)
[2019-06-13] MEDS ORDERED: Nitroglycerin 0.4 MG TAB (25 Tab Bottle) SL PRN (08:18)
[2019-06-13] MEDS ORDERED: Bisacodyl 10 MG SUPP PR PRN (08:18)
[2019-06-13] MEDS ORDERED: Ondansetron PF 4 MG/2 ML Vial IVP PRN (08:18)
[2019-06-13] MEDS ORDERED: Guaifenesin DM 100-10/5 ML UDCUP PO PRN (08:18)
[2019-06-13] MEDS ORDERED: Mineral Oil ENEMA PR PRN (08:18)
[2019-06-13] MEDS: Carvedilol 6.25 MG TAB PO SCH ×2 (08:43→16:38)
[2019-06-13] MEDS: Tamsulosin HCl 0.4 MG CAP PO SCH ×2 (08:44→20:58)
[2019-06-13] MEDS: Polyethylene Glycol 3350 17 GM Packet PO SCH (08:44)
[2019-06-13] MEDS: Famotidine 20 MG TAB PO SCH ×2 (08:44→20:57)
[2019-06-13] MEDS: Furosemide 40 MG TAB PO SCH (08:44)
[2019-06-13] MEDS: Aspirin 325 MG TAB PO SCH (08:44)
[2019-06-13] MEDS: Potassium Chloride 10 MEQ TAB PO SCH (08:46)
--- NOTE | 2019-06-13 09:02 | PRG ---
DATE OF SERVICE: 06/13/2019 SUBJECTIVE: This morning, he is awake, alert and responsive. He said he is not short of breath, still having pain. OBJECTIVE: VITAL SIGNS: Pulse 105, respiratory rate 22, temperature 98, blood pressure 106/58. CHEST: Decreased breath sounds. No wheezing. CARDIAC: Normal S1, S2. No gallops. ABDOMEN: No masses. LABORATORY DATA: Creatinine 1.50. Labs otherwise unremarkable. His chest x-ray shows a questionable right-sided infiltrate. IMPRESSION: Chronic obstructive pulmonary disease, status post coronary artery bypass graft, status post peritonitis and colostomy. Continue PT, supportive care. Neb treatments. He can be transferred out of the ICU any time. Job ID: [id number]
[2019-06-13] MEDS: Ibuprofen 600 MG TAB PO PRN ×2 (09:20→16:08)
--- NOTE | 2019-06-13 10:30 | PRG ---
DATE OF SERVICE: 06/13/2019 SUBJECTIVE: Mr. English is doing better today. OBJECTIVE: VITAL SIGNS: His blood pressure is 130/70 and pulse 97. CHEST: He is not having chest pain. Chest tube was removed this morning. LUNGS: Clear. CARDIAC: Normal S1 and normal S2. ABDOMEN: Soft and nontender. EXTREMITIES: Moderate edema. ASSESSMENT: Status post bypass surgery, doing well. PLAN: We will continue to follow with you. Job ID: [id number]
[2019-06-13 13:45] LABS: Actual Bicarbonate (HCO3a) 19.9 mEq/L (22-28); Analyzer IN Cardio OR; Base Excess (BEa) -4.6 mEq/L (-2.0 to +3.0); CO2 Tension 34.5 mmHg (35.0-45.0); Calcium, Ionized 1.07 mmol/L (1.12-1.30); Carboxyhemoglobin (COHb) 0.4 gm% (0.0-3.0); Hemoglobin (Hb) 10.7 g/dL (14.0-18.0); O2 Tension (PaO2) 480.4 mmHg (> 70.0); Potassium - ABG Lab 4.23 mmol/L (3.70-5.30); pH, Arterial 7.38 (7.35-7.45)
[2019-06-13 13:50] LABS: Actual Bicarbonate (HCO3a) 21.3 mEq/L (22-28); Analyzer IN Cardio OR; CO2 Tension 44.7 mmHg (35.0-45.0); Carboxyhemoglobin (COHb) 0.3 gm% (0.0-3.0); Hemoglobin (Hb) 10.8 g/dL (14.0-18.0); O2 Tension (PaO2) 440.2 mmHg (> 70.0); Potassium - ABG Lab 5.01 mmol/L (3.70-5.30)
[2019-06-13 13:51] LABS: Actual Bicarbonate (HCO3a) 23.8 mEq/L (22-28); Analyzer IN Cardio OR; Base Excess (BEa) -2.5 mEq/L (-2.0 to +3.0); CO2 Tension 48.9 mmHg (35.0-45.0); Calcium, Ionized 1.01 mmol/L (1.12-1.30); Carboxyhemoglobin (COHb) 0.9 gm% (0.0-3.0); Hemoglobin (Hb) 8.2 g/dL (14.0-18.0); Potassium - ABG Lab 5.64 mmol/L (3.70-5.30); pH, Arterial 7.31 (7.35-7.45)
[2019-06-13 13:51] LABS: Actual Bicarbonate (HCO3v) 24 mEq/L (22-28); Analyzer IN Cardio OR; Base Excess -3.6 mEq/L (-2.0 to +3.0); Calcium, Ionized 0.99 mmol/L (1.16-1.32); Chloride (ABG LAB) 106 mmol/L (98-106); Hemoglobin (Hb) 8.1 g/dL (12.6-17.4); Potassium - ABG Lab 5.59 mmol/L (3.70-5.30); Sodium 135.3 mmol/L (133-146); pH (venous) 7.25 (7.32-7.43)
[2019-06-13 13:52] LABS: Analyzer IN Cardio OR; Base Excess (BEa) -2.9 mEq/L (-2.0 to +3.0); CO2 Tension 45.2 mmHg (35.0-45.0); Calcium, Ionized 1.01 mmol/L (1.12-1.30); Carboxyhemoglobin (COHb) 0.1 gm% (0.0-3.0); Hemoglobin (Hb) 8.2 g/dL (14.0-18.0); Potassium - ABG Lab 6.15 mmol/L (3.70-5.30); pH, Arterial 7.32 (7.35-7.45)
[2019-06-13 13:52] LABS: Analyzer IN Cardio OR; Base Excess (BEa) -4.9 mEq/L (-2.0 to +3.0); CO2 Tension 49.7 mmHg (35.0-45.0); Calcium, Ionized 1.11 mmol/L (1.12-1.30); Hemoglobin (Hb) 8.7 g/dL (14.0-18.0); O2 Tension (PaO2) 369.7 mmHg (> 70.0); Potassium - ABG Lab 5.41 mmol/L (3.70-5.30); pH, Arterial 7.26 (7.35-7.45)
[2019-06-13 13:53] LABS: Actual Bicarbonate (HCO3a) 21.7 mEq/L (22-28); Analyzer IN Cardio OR; Base Excess (BEa) -4.9 mEq/L (-2.0 to +3.0); CO2 Tension 46.8 mmHg (35.0-45.0); Carboxyhemoglobin (COHb) 0.3 gm% (0.0-3.0); O2 Tension (PaO2) 483.3 mmHg (> 70.0); Potassium - ABG Lab 5.06 mmol/L (3.70-5.30); Puncture Site ALINE; pH, Arterial 7.28 (7.35-7.45)
[2019-06-13 13:54] LABS: Puncture Site ALINE
[2019-06-13 13:54] LABS: Puncture Site ALINE
[2019-06-13 13:55] LABS: Puncture Site ALINE
[2019-06-13 13:56] LABS: Puncture Site ALINE
[2019-06-13 13:56] LABS: O2 Tension (PaO2) 517.6 mmHg (> 70.0); Puncture Site ALINE
[2019-06-13] MEDS: Atorvastatin Calcium 40 MG TAB PO SCH (20:57)
[2019-06-14] MEDS: Aspirin 325 MG TAB PO SCH (08:17)
[2019-06-14] MEDS: Polyethylene Glycol 3350 17 GM Packet PO SCH (08:17)
[2019-06-14] MEDS: Enoxaparin Sodium 40 MG/0.4 ML SYRINGE SC SCH (08:17)
[2019-06-14] MEDS: Furosemide 40 MG TAB PO SCH (08:18)
[2019-06-14] MEDS: Carvedilol 6.25 MG TAB PO SCH ×2 (08:18→16:32)
[2019-06-14] MEDS: Tamsulosin HCl 0.4 MG CAP PO SCH ×2 (08:18→20:39)
[2019-06-14] MEDS: Potassium Chloride 10 MEQ TAB PO SCH (08:18)
[2019-06-14] MEDS: Famotidine 20 MG TAB PO SCH ×2 (08:18→20:40)
--- NOTE | 2019-06-14 08:56 | PRG ---
DATE OF SERVICE: 06/14/2019 SUBJECTIVE: This morning, he is better, awake, alert, and responsive. No shortness of breath. OBJECTIVE: VITAL SIGNS: His sats are 98% on room air, respiratory rate 21, pulse 106, blood pressure 130/78. CHEST: No wheezing or crackles. CARDIAC: Normal S1 and S2. No gallops. ABDOMEN: No mass. LABORATORY DATA: No recent lab was done. IMAGING STUDIES: His last x-ray yesterday was stable. IMPRESSION: Status post coronary artery bypass grafting, morbid obesity, chronic obstructive pulmonary disease, status post colostomy. PLAN: Pulmonary pavon, continue neb treatment, PT supportive care. Disposition as per Surgery. Job ID: [id number]
[2019-06-14 09:54] VITALS: BMI 33.5
[2019-06-14] MEDS: Ibuprofen 600 MG TAB PO PRN (17:03)
[2019-06-14] MEDS: Atorvastatin Calcium 40 MG TAB PO SCH (20:40)
[2019-06-15] MEDS: Ibuprofen 600 MG TAB PO PRN ×3 (06:09→20:42)
[2019-06-15] MEDS ORDERED: Furosemide 40 MG/4 ML VIAL SLOW IVP SCH (06:30)
[2019-06-15] MEDS: Carvedilol 6.25 MG TAB PO SCH ×2 (08:57→16:48)
[2019-06-15] MEDS: Tamsulosin HCl 0.4 MG CAP PO SCH ×2 (09:09→20:39)
[2019-06-15] MEDS: Aspirin 325 MG TAB PO SCH (09:10)
[2019-06-15] MEDS: Polyethylene Glycol 3350 17 GM Packet PO SCH (09:10)
[2019-06-15] MEDS: Famotidine 20 MG TAB PO SCH ×2 (09:10→20:37)
[2019-06-15] MEDS: Potassium Chloride 10 MEQ TAB PO SCH (09:10)
[2019-06-15] MEDS: Enoxaparin Sodium 40 MG/0.4 ML SYRINGE SC SCH (09:10)
[2019-06-15] MEDS: Furosemide 40 MG TAB PO SCH (09:10)
--- NOTE | 2019-06-15 09:39 | PRG ---
DATE OF SERVICE: 06/15/2019 SUBJECTIVE: Mr. English is doing better today. He is sitting up in the chair. OBJECTIVE: VITAL SIGNS: Blood pressure is somewhat low 103 systolic, sitting. LUNGS: Clear. CARDIAC: Normal S1, normal S2. ABDOMEN: Soft and nontender. EXTREMITIES: There is no edema. ASSESSMENT: 1. Status post bypass surgery. 2. Relatively low blood pressure. PLAN: 1. We will reduce carvedilol dose for now. 2. Continue with exercise and cardiac rehab. 3. Continue statin. Job ID: [id number]
[2019-06-15] MEDS: Atorvastatin Calcium 40 MG TAB PO SCH (20:37)
[2019-06-16] MEDS: Ibuprofen 600 MG TAB PO PRN ×2 (06:09→16:36)
[2019-06-16] MEDS: Potassium Chloride 10 MEQ TAB PO SCH (08:15)
[2019-06-16] MEDS: Carvedilol 6.25 MG TAB PO SCH ×2 (08:15→16:36)
[2019-06-16] MEDS: Famotidine 20 MG TAB PO SCH ×2 (09:54→20:33)
[2019-06-16] MEDS: Furosemide 40 MG TAB PO SCH (09:54)
[2019-06-16] MEDS: Tamsulosin HCl 0.4 MG CAP PO SCH ×2 (09:54→20:32)
[2019-06-16] MEDS: Aspirin 325 MG TAB PO SCH (09:54)
[2019-06-16] MEDS: Polyethylene Glycol 3350 17 GM Packet PO SCH (09:55)
[2019-06-16] MEDS: Enoxaparin Sodium 40 MG/0.4 ML SYRINGE SC SCH (09:55)
[2019-06-16] MEDS: Atorvastatin Calcium 40 MG TAB PO SCH (20:32)
[2019-06-17] MEDS: Ibuprofen 600 MG TAB PO PRN (03:34)
[2019-06-17 08:01] VITALS: BP 137/67; TEMP 97.8
[2019-06-17] MEDS: Potassium Chloride 10 MEQ TAB PO SCH (08:02)
[2019-06-17] MEDS: Carvedilol 6.25 MG TAB PO SCH (08:02)
[2019-06-17] MEDS: Enoxaparin Sodium 40 MG/0.4 ML SYRINGE SC SCH (09:49)
[2019-06-17] MEDS: Famotidine 20 MG TAB PO SCH (09:49)
[2019-06-17] MEDS: Tamsulosin HCl 0.4 MG CAP PO SCH (09:49)
[2019-06-17] MEDS: Furosemide 40 MG TAB PO SCH (09:49)
[2019-06-17] MEDS: Aspirin 325 MG TAB PO SCH (09:49)
[2019-06-17] MEDS: Polyethylene Glycol 3350 17 GM Packet PO SCH (09:50)
--- NOTE | 2019-06-18 11:14 | DIS ---
DATE OF ADMISSION: 06/11/2019 DATE OF DISCHARGE: 06/17/2019 HOSPITAL COURSE: The patient was admitted, underwent coronary artery bypass grafting to the right system twice into the LAD. His postoperative course was complicated by some persistent coughing and sputum production. Due to his coughing paroxysms, he developed some sternal drainage which had gradually decreased to minimal spotting over the course of 24 hours. He will be discharged home with prescriptions for Lipitor 40 at bedtime, Lasix 40 a day for 1 week, levofloxacin 500 mg daily for 7 days, Flomax 0.4 a day for 1 month. He is to resume his home medications of Coreg 6.25 b.i.d., lisinopril to be decreased to 5 mg a day, aspirin 1 a day. Discharge and followup instructions have been given and specific instructions have been given for chest wound care with daily dressing changes with Betadine and gauze and then these may stop once the drainage completely ceases, which I anticipate in the next 24 hours. Job ID: [id number]
== END 2019-06-17 12:50 | disposition home or self-care (01) | DRG 235 ==
LOC: SURG A 06-11 05:43 → CCU 06-11 11:56 → 2NO 06-14 17:46
PROVIDERS: ADMIT Thoracic Surgery (Cardiothoracic Vascular Surgery); ATTEND Thoracic Surgery (Cardiothoracic Vascular Surgery)
PROC: 02100Z9 Bypass Coronary Artery, One Artery from Left Internal Mammary, Open Approach (ICD-10-PCS; principal; 2019-06-11)
PROC: 021109W Bypass Coronary Artery, Two Arteries from Aorta with Autologous Venous Tissue, Open Approach (ICD-10-PCS; 2019-06-11)
PROC: 06BQ4ZZ Excision of Left Saphenous Vein, Percutaneous Endoscopic Approach (ICD-10-PCS; 2019-06-11)
PROC: 5A1221Z Performance of Cardiac Output, Continuous (ICD-10-PCS; 2019-06-11)
DX: I25.10 Atherosclerotic heart disease of native coronary artery without angina pectoris (principal); J96.01 Acute respiratory failure with hypoxia; I13.0 Hypertensive heart and chronic kidney disease with heart failure and stage 1 through stage 4 chronic kidney disease, or unspecified chronic kidney disease; I50.32 Chronic diastolic (congestive) heart failure; K57.92 Diverticulitis of intestine, part unspecified, without perforation or abscess without bleeding; N18.3 Chronic kidney disease, stage 3 (moderate); M10.9 Gout, unspecified; E78.5 Hyperlipidemia, unspecified; N40.0 Benign prostatic hyperplasia without lower urinary tract symptoms; F17.200 Nicotine dependence, unspecified, uncomplicated; G47.39 Other sleep apnea; J44.9 Chronic obstructive pulmonary disease, unspecified; R00.0 Tachycardia, unspecified; E66.01 Morbid (severe) obesity due to excess calories; Z68.32 Body mass index [BMI] 32.0-32.9, adult; Z90.49 Acquired absence of other specified parts of digestive tract
CPT/HCPCS: 36415; 36416; 36430; 71045; 80048; 82805; 82947; 85025; 85027; 85610; 85730; 86850; 86900; 86901; 93005; 93010; 93798; 94002; 94150; 94640; J0131; J0360; J0690; J1642; J1644; J1650; J1815; J1940; J2001; J2150; J2250; J2270; J2405; J2440; J2704; J2720; J3010; J3370; J3475; J3480; J3490; J7050; J7620; P9045; S0017; S0028

== ENCOUNTER 2023-07-19 07:47 | Outpatient (CLI) | payer MEDICARE ==
[2023-07-19] MEDS ORDERED: Iopamidol-370 76% 500 ML MDV (1 ML CHARGE) ONE (09:26)
== END 2023-07-19 07:48 | disposition home or self-care (01) ==
LOC: BICCT 07:47
PROVIDERS: ATTEND Specialist
DX: K43.5 Parastomal hernia without obstruction or gangrene (principal); E27.8 Other specified disorders of adrenal gland
CPT/HCPCS: 74177; 82565

== ENCOUNTER 2023-12-02 11:30 | Inpatient (IN) | payer MEDICARE ==
[2023-12-19 09:43] VITALS: BMI 34.1
[2023-12-20] MEDS ORDERED: Ketorolac Tromethamine 30 MG (1 mL) VIAL ONE ×2 (08:42→15:53)
[2023-12-20] MEDS ORDERED: Acetaminophen 500 MG TAB ONE (08:42)
[2023-12-20] MEDS ORDERED: Lidocaine 1% MPF 2 ML VIAL ONE (08:42)
[2023-12-20] MEDS ORDERED: Sodium Chloride 0.9% 100 ML ONE (08:43)
[2023-12-20] MEDS ORDERED: cefOXitin 2 GM VIAL ONE ×2 (08:43→13:14)
[2023-12-20] MEDS ORDERED: Famotidine/PF 20 mg/2ml Vial ONE (09:14)
[2023-12-20] MEDS ORDERED: Bupivacaine 0.25% HCL 30 ML VIAL ONE ×2 (09:56→10:08)
[2023-12-20] MEDS ORDERED: Rocuronium Bromide 10 MG/ML (10ML VIAL) ONE ×2 (10:05→12:22)
[2023-12-20] MEDS ORDERED: fentaNYL PF 100 MCG/2 ML SYRINGE ONE ×3 (10:05→15:13)
[2023-12-20] MEDS ORDERED: Lidocaine 2% PF 5 ML VIAL ONE (10:05)
[2023-12-20] MEDS ORDERED: PROPOFOL 20 ML ONE (10:05)
[2023-12-20] MEDS ORDERED: EPINEPHrine 1 MG/ML VIAL ONE (10:08)
[2023-12-20] MEDS ORDERED: Lidocaine 1% (PF) 30 ML VIAL ONE (10:09)
[2023-12-20] MEDS ORDERED: Midazolam HCl 2 mg/2 ml Vial ONE (10:18)
[2023-12-20] MEDS ORDERED: SUCCINYLCHOLINE/SOD CL,ISO/PF 200 MG/10 ML SYRINGE FS ONE (10:24)
[2023-12-20] MEDS ORDERED: Dexamethasone 4 mg/ml Vial ONE (11:20)
[2023-12-20] MEDS ORDERED: ePHEDrine Sulfate 50 MG/10 ML VIAL ONE (11:20)
[2023-12-20] MEDS ORDERED: Ondansetron PF 4 MG/2 ML Vial ONE (11:20)
[2023-12-20] MEDS ORDERED: Dexmedetomidine 200 MCG/2 ML VIAL ONE (11:27)
[2023-12-20] MEDS ORDERED: hydrALAZINE 20 MG/ML VIAL ONE (12:08)
[2023-12-20] MEDS ORDERED: Albumin 5% 500 ML ONE (12:40)
[2023-12-20] MEDS ORDERED: SUGAMMADEX SODIUM 200 MG/2 ML VIAL ONE (13:27)
[2023-12-20] MEDS ORDERED: hydrALAZINE 20 MG/ML VIAL SLOW IVP PRN (14:03)
[2023-12-20] MEDS ORDERED: Ondansetron PF 4 MG/2 ML Vial IVP PRN (14:03)
[2023-12-20] MEDS ORDERED: Morphine 2 MG/ML VIAL SLOW IVP PRN (14:03)
[2023-12-20] MEDS ORDERED: Promethazine HCl 25 MG/ML VIAL IM PRN (14:03)
[2023-12-20] MEDS ORDERED: Ipratropium/Albuterol 3 ML NEB NEB PRN (14:03)
[2023-12-20] MEDS ORDERED: Glucagon 1 MG/ML KIT IM PRN (14:15)
[2023-12-20] MEDS ORDERED: Dextrose 5% in Water 1,000 ML IV PRN (14:15)
[2023-12-20] MEDS ORDERED: Dextrose 50% Abboject 50 ML SYRINGE IVP PRN (14:15)
[2023-12-20] MEDS ORDERED: Insulin Regular 300 UNITS/3 ML VIAL ONE ×2 (14:25→14:26)
[2023-12-20] MEDS: Ketorolac Tromethamine 30 MG (1 mL) VIAL IVP SCH ×2 (15:56→21:49)
[2023-12-20] MEDS ORDERED: fentaNYL 50 mcg/mL 1 mL Vial ONE (17:11)
[2023-12-20] MEDS ORDERED: Carvedilol 6.25 MG TAB ONE (17:14)
[2023-12-20] MEDS: Carvedilol 6.25 MG TAB PO SCH (17:15)
[2023-12-20] MEDS: Sodium Chloride 0.9% 1,000 ML IV SCH (18:28)
[2023-12-20] MEDS: Morphine 4 MG/ML VIAL SLOW IVP PRN (21:49)
[2023-12-20] MEDS: Famotidine/PF 20 mg/2ml Vial SLOW IVP SCH (21:49)
[2023-12-20] MEDS: Famotidine 20 MG TAB PO SCH (22:01)
[2023-12-20] MEDS: Atorvastatin Calcium 40 MG TAB PO SCH (22:01)
[2023-12-21] MEDS: Sodium Chloride 0.9% 1,000 ML IV SCH ×5 (01:01→20:16)
[2023-12-21] MEDS: Ketorolac Tromethamine 30 MG (1 mL) VIAL IVP SCH ×4 (03:52→22:29)
[2023-12-21 05:15] LABS: #Monocytes 0.6 thou/uL (0.11-0.59); #Neutrophils 10.4 thou/uL (1.40-6.50); %Basophils 0.2 % (0.0-1.0); %Lymphocytes 5.9 % (21.0-51.0); %Monocytes 5.3 % (0.0-10.0); %Neutrophils 88.3 % (42.0-75.0); Hematocrit 38.4 % (42.0-52.0); Hemoglobin 12.6 g/dL (14.0-18.0); Mean Corpuscular HGB CONC 32.8 g/dL (32.0-36.0); Mean Corpuscular Hemoglobin 29.2 pg (27.0-31.0); Mean Corpuscular Volume 89.1 fl (78.0-98.0); Mean Platelet Volume 9.8 fL (7.4-10.4); Platelet Count 128 10x3/uL (130-400); RBC Distribution Width 13.5 % (11.5-14.5); Red Blood Cell (RBC) Count 4.31 mill/uL (4.70-6.10); White Blood Cell (WBC) Count 11.8 10x3/uL (4.8-10.8)
[2023-12-21 06:03] LABS: Anion Gap 12 mmol/L (10-20); BUN (Urea Nitrogen) 21 mg/dL (8.4-25.7); Calc. Creatinine Clearance 63 mL/min (70-130); Carbon Dioxide 23 mmol/L (23-31); Chloride 107 mmol/L (98-107); Estimated GFR 50; Glucose 175 mg/dL (83-110); Potassium 4.7 mmol/L (3.5-5.1); Sodium 137 mmol/L (136-145)
[2023-12-21] MEDS: Famotidine/PF 20 mg/2ml Vial SLOW IVP SCH ×2 (08:15→22:28)
[2023-12-21] MEDS: Lisinopril 20 MG TAB PO SCH (08:15)
[2023-12-21] MEDS: Enoxaparin 40 MG (0.4 mL) SYRINGE SC SCH (08:15)
[2023-12-21] MEDS: Morphine 4 MG/ML VIAL SLOW IVP PRN ×3 (08:15→18:41)
[2023-12-21] MEDS: Carvedilol 6.25 MG TAB PO SCH ×2 (08:15→16:28)
[2023-12-21] MEDS: Famotidine 20 MG TAB PO SCH ×2 (08:15→20:17)
[2023-12-21] MEDS: Insulin Regular 300 UNITS/3 ML VIAL SC PRN ×2 (12:15→18:37)
[2023-12-21 14:31] LABS: Hemoglobin A1c 10.7 % (4.0-6.0)
[2023-12-21] MEDS ORDERED: Tamsulosin HCl 0.4 MG CAP PO SCH (16:00)
[2023-12-21] MEDS: Atorvastatin Calcium 40 MG TAB PO SCH (20:16)
[2023-12-21] MEDS: Insulin Glargine 30 UNITS/0.3 ML VIAL SC SCH (22:29)
[2023-12-22] MEDS: Ketorolac Tromethamine 30 MG (1 mL) VIAL IVP SCH ×4 (02:48→20:51)
[2023-12-22] MEDS: Morphine 4 MG/ML VIAL SLOW IVP PRN ×2 (02:57→06:04)
[2023-12-22] MEDS: Sodium Chloride 0.9% 1,000 ML IV SCH ×5 (03:01→16:35)
[2023-12-22 04:51] LABS: #Eosinphils 0.4 thou/uL (0.0-0.7); #Monocytes 0.5 thou/uL (0.11-0.59); #Neutrophils 6.8 thou/uL (1.40-6.50); %Basophils 0.2 % (0.0-1.0); %Eosinophils 4.2 % (0.0-10.0); %Lymphocytes 9.6 % (21.0-51.0); %Monocytes 6.3 % (0.0-10.0); Hematocrit 36.4 % (42.0-52.0); Hemoglobin 11.5 g/dL (14.0-18.0); Mean Corpuscular HGB CONC 31.6 g/dL (32.0-36.0); Mean Corpuscular Hemoglobin 29.1 pg (27.0-31.0); Mean Platelet Volume 9.8 fL (7.4-10.4); Platelet Count 97 10x3/uL (130-400); RBC Distribution Width 13.9 % (11.5-14.5); Red Blood Cell (RBC) Count 3.95 mill/uL (4.70-6.10); White Blood Cell (WBC) Count 8.6 10x3/uL (4.8-10.8)
[2023-12-22 04:56] LABS: Mean Corpuscular Volume 92.2 fl (78.0-98.0)
[2023-12-22 05:18] LABS: Anion Gap 10 mmol/L (10-20); BUN (Urea Nitrogen) 18 mg/dL (8.4-25.7); Calc. Creatinine Clearance 75 mL/min (70-130); Calcium 7.7 mg/dL (7.8-10.44); Carbon Dioxide 23 mmol/L (23-31); Cardiac Risk 3.3 (Less than 4.5); Chloride 108 mmol/L (98-107); Cholesterol 90 mg/dl (< 200 Desired); Estimated GFR 60; Glucose 134 mg/dL (83-110); HDL Cholesterol 27 mg/dL (>60 Neg Risk); LDL Cholesterol, Calculated 34 mg/dL; Potassium 4.1 mmol/L (3.5-5.1); Sodium 137 mmol/L (136-145); Triglycerides 146 mg/dL (Less than 150)
[2023-12-22] MEDS: Famotidine/PF 20 mg/2ml Vial SLOW IVP SCH ×2 (08:04→20:51)
[2023-12-22] MEDS: Enoxaparin 40 MG (0.4 mL) SYRINGE SC SCH (08:04)
[2023-12-22] MEDS: Insulin Glargine 30 UNITS/0.3 ML VIAL SC SCH ×2 (08:38→20:50)
[2023-12-22] MEDS: Famotidine 20 MG TAB PO SCH ×2 (08:38→20:50)
[2023-12-22] MEDS: Lisinopril 20 MG TAB PO SCH (08:38)
[2023-12-22] MEDS: Tamsulosin HCl 0.4 MG CAP PO SCH (08:38)
[2023-12-22] MEDS: Carvedilol 6.25 MG TAB PO SCH ×2 (08:38→16:32)
[2023-12-22] MEDS ORDERED: Furosemide 40 MG (4 mL) VIAL SLOW IVP SCH (08:45)
[2023-12-22] MEDS ORDERED: Lisinopril 20 MG TAB PO SCH (08:51)
[2023-12-22] MEDS: HYDROcodone/Acetaminophen 7.5/325 mg Tablet PO PRN ×2 (12:31→19:59)
[2023-12-22] MEDS: Insulin Regular 300 UNITS/3 ML VIAL SC PRN (12:49)
[2023-12-22] MEDS: Atorvastatin Calcium 40 MG TAB PO SCH (20:50)
[2023-12-23] MEDS: HYDROcodone/Acetaminophen 7.5/325 mg Tablet PO PRN ×3 (02:02→16:58)
[2023-12-23] MEDS: Sodium Chloride 0.9% 1,000 ML IV SCH ×2 (03:21→08:23)
[2023-12-23] MEDS: Ketorolac Tromethamine 30 MG (1 mL) VIAL IVP SCH ×2 (03:21→08:29)
[2023-12-23 04:11] LABS: #Eosinphils 0.3 thou/uL (0.0-0.7); #Monocytes 0.5 thou/uL (0.11-0.59); #Neutrophils 5.4 thou/uL (1.40-6.50); %Basophils 0.4 % (0.0-1.0); %Eosinophils 4.7 % (0.0-10.0); %Neutrophils 76.9 % (42.0-75.0); Hematocrit 35.4 % (42.0-52.0); Hemoglobin 11.2 g/dL (14.0-18.0); Mean Corpuscular HGB CONC 31.6 g/dL (32.0-36.0); Mean Corpuscular Hemoglobin 28.5 pg (27.0-31.0); Mean Corpuscular Volume 90.1 fl (78.0-98.0); Mean Platelet Volume 9.6 fL (7.4-10.4); Platelet Count 112 10x3/uL (130-400); RBC Distribution Width 13.8 % (11.5-14.5); Red Blood Cell (RBC) Count 3.93 mill/uL (4.70-6.10)
[2023-12-23 04:37] LABS: Anion Gap 11 mmol/L (10-20); BUN (Urea Nitrogen) 17 mg/dL (8.4-25.7); Calc. Creatinine Clearance 72 mL/min (70-130); Carbon Dioxide 24 mmol/L (23-31); Chloride 106 mmol/L (98-107); Estimated GFR 58; Glucose 152 mg/dL (83-110); Potassium 4.1 mmol/L (3.5-5.1); Sodium 137 mmol/L (136-145)
[2023-12-23] MEDS: Famotidine 20 MG TAB PO SCH ×2 (08:29→21:21)
[2023-12-23] MEDS: Carvedilol 6.25 MG TAB PO SCH ×2 (08:29→16:56)
[2023-12-23] MEDS: Lisinopril 20 MG TAB PO SCH (08:39)
[2023-12-23] MEDS: Enoxaparin 40 MG (0.4 mL) SYRINGE SC SCH (08:39)
[2023-12-23] MEDS: Tamsulosin HCl 0.4 MG CAP PO SCH (08:39)
[2023-12-23] MEDS: Famotidine/PF 20 mg/2ml Vial SLOW IVP SCH (08:39)
[2023-12-23] MEDS ORDERED: Dextrose 5% in Water 1,000 ML IV PRN (09:45)
[2023-12-23] MEDS ORDERED: HumaLOG 300 UNITS/3 ML VIAL SC PRN ×2 (09:45)
[2023-12-23] MEDS ORDERED: Furosemide 40 MG (4 mL) VIAL SLOW IVP SCH (14:00)
[2023-12-23] MEDS ORDERED: Milk Of Magnesia 30 ML UDCUP PO SCH (14:00)
[2023-12-23] MEDS: metFORMIN 500 MG TAB PO SCH (16:56)
[2023-12-23] MEDS: Atorvastatin Calcium 40 MG TAB PO SCH (21:20)
[2023-12-23] MEDS: Insulin Glargine 30 UNITS/0.3 ML VIAL SC SCH (21:21)
[2023-12-24] MEDS: HYDROcodone/Acetaminophen 7.5/325 mg Tablet PO PRN ×3 (01:40→10:10)
[2023-12-24 07:01] LABS: #Eosinphils 0.4 thou/uL (0.0-0.7); #Monocytes 0.5 thou/uL (0.11-0.59); %Basophils 0.3 % (0.0-1.0); %Eosinophils 5.7 % (0.0-10.0); %Lymphocytes 10.5 % (21.0-51.0); %Monocytes 7.1 % (0.0-10.0); %Neutrophils 75.8 % (42.0-75.0); Hematocrit 35.9 % (42.0-52.0); Hemoglobin 12.1 g/dL (14.0-18.0); Mean Corpuscular HGB CONC 33.7 g/dL (32.0-36.0); Mean Corpuscular Hemoglobin 29.6 pg (27.0-31.0); Mean Corpuscular Volume 87.8 fl (78.0-98.0); Mean Platelet Volume 9.7 fL (7.4-10.4); Platelet Count 126 10x3/uL (130-400); RBC Distribution Width 13.4 % (11.5-14.5); Red Blood Cell (RBC) Count 4.09 mill/uL (4.70-6.10); White Blood Cell (WBC) Count 6.6 10x3/uL (4.8-10.8)
[2023-12-24 07:39] VITALS: TEMP 98.2
[2023-12-24 07:46] LABS: Anion Gap 15 mmol/L (10-20); BUN (Urea Nitrogen) 19 mg/dL (8.4-25.7); Calc. Creatinine Clearance 84 mL/min (70-130); Calcium 8.3 mg/dL (7.8-10.44); Carbon Dioxide 22 mmol/L (23-31); Chloride 104 mmol/L (98-107); Estimated GFR 70; Glucose 139 mg/dL (83-110); Potassium 3.8 mmol/L (3.5-5.1); Sodium 137 mmol/L (136-145)
[2023-12-24] MEDS: metFORMIN 500 MG TAB PO SCH (08:27)
[2023-12-24] MEDS: Famotidine 20 MG TAB PO SCH (08:27)
[2023-12-24] MEDS: Carvedilol 6.25 MG TAB PO SCH (08:28)
[2023-12-24] MEDS: Lisinopril 20 MG TAB PO SCH (08:28)
[2023-12-24] MEDS: Tamsulosin HCl 0.4 MG CAP PO SCH (08:28)
[2023-12-24 11:29] VITALS: BP 168/80
== END 2023-12-24 13:41 | disposition home or self-care (01) | DRG 331 ==
LOC: EDSTATUS 12-06 11:30 → SURG A 12-20 08:03
PROVIDERS: ADMIT Specialist; ATTEND Hospitalist
PROC: 0WQF0ZZ Repair Abdominal Wall, Open Approach (ICD-10-PCS; principal; 2023-12-20)
PROC: 0DBN0ZZ Excision of Sigmoid Colon, Open Approach (ICD-10-PCS; 2023-12-20)
PROC: 30233J1 Transfusion of Nonautologous Serum Albumin into Peripheral Vein, Percutaneous Approach (ICD-10-PCS; 2023-12-20)
DX: K43.5 Parastomal hernia without obstruction or gangrene (principal); Z93.3 Colostomy status; E66.9 Obesity, unspecified; Z68.34 Body mass index [BMI] 34.0-34.9, adult; Z95.1 Presence of aortocoronary bypass graft; Z98.890 Other specified postprocedural states; E78.5 Hyperlipidemia, unspecified; M10.9 Gout, unspecified; I25.10 Atherosclerotic heart disease of native coronary artery without angina pectoris; Z87.891 Personal history of nicotine dependence; Z79.899 Other long term (current) drug therapy; J44.9 Chronic obstructive pulmonary disease, unspecified; N18.9 Chronic kidney disease, unspecified; E11.22 Type 2 diabetes mellitus with diabetic chronic kidney disease; I12.9 Hypertensive chronic kidney disease with stage 1 through stage 4 chronic kidney disease, or unspecified chronic kidney disease
CPT/HCPCS: 36415; 36416; 71045; 80048; 80061; 83036; 85025; 88304; 88307; 93005; 93010; A4314; A4649; J0171; J0360; J0665; J0694; J1100; J1650; J1815; J1885; J1940; J2001; J2250; J2270; J2272; J2405; J2704; J3010; J3490; J7050; P9045; S0028

== ENCOUNTER 2023-12-19 10:58 | Outpatient (CLI) | payer MEDICARE ==
[2023-12-19 12:12] LABS: Hematocrit 39.9 % (38.8-50.0); Hemoglobin 13.5 g/dL (13.5-17.5); Mean Corpuscular HGB CONC 33.8 g/dL (32.0-36.0); Mean Corpuscular Hemoglobin 28.7 pg (27.0-33.0); Mean Corpuscular Volume 84.9 fl (81.2-95.1); Mean Platelet Volume 9.4 fl (7.4-10.4); Platelet Count 153 10x3/uL (150-450); RBC Distribution Width 13.2 % (11.5-14.5); White Blood Cell (WBC) Count 5.7 10x3/uL (3.5-10.5)
[2023-12-19 12:13] LABS: #Eosinphils 0.2 10x3/uL (0.0-0.5); #Monocytes 0.3 10x3/uL (0.0-1.1); #Neutrophils 4.1 10x3/uL (1.5-8.4); %Basophils 0.5 % (0.0-2.0); %Eosinophils 3.5 % (0.0-6.0); %Lymphocytes 17.2 % (18.0-47.0); %Neutrophils 71.6 % (40.0-75.0)
[2023-12-19 12:29] LABS: Anion Gap 14 mmol/L (10-20); BUN (Urea Nitrogen) 18 mg/dL (8.4-25.7); Calc. Creatinine Clearance 0 mL/min (70-130); Calcium 8.9 mg/dL (7.8-10.44); Carbon Dioxide 25 mmol/L (23-31); Chloride 103 mmol/L (98-107); Estimated GFR 60; Glucose 341 mg/dL (83-110); Potassium 4.4 mmol/L (3.5-5.1); Sodium 138 mmol/L (136-145)
== END 2023-12-19 10:59 | disposition home or self-care (01) ==
LOC: LABBT 10:58
PROVIDERS: ATTEND Specialist
DX: Z01.818 Encounter for other preprocedural examination (principal); K43.5 Parastomal hernia without obstruction or gangrene; Z93.3 Colostomy status
CPT/HCPCS: 71046; 80048; 83036; 85025; 93005; 93010

== ENCOUNTER 2025-08-08 11:23 | Emergency (ER) | payer MEDICARE, OTHER ==
[2025-08-08] MEDS ORDERED: hydrALAZINE 20 MG/ML VIAL ONE ×2 (12:24→13:26)
[2025-08-08 12:42] LABS: #Basophils 0.04 10x3/uL (0.0-0.2); #Eosinophils 0.26 10x3/uL (0.0-0.7); #Monocytes 0.41 10x3/uL (0.11-0.59); #Neutrophils 3.56 10x3/uL (1.40-6.50); %Basophils 0.7 % (0.0-1.0); %Eosinophils 4.9 % (0.0-10.0); %Lymphocytes 19.6 % (21.0-51.0); %Monocytes 7.7 % (0.0-10.0); %Neutrophils 66.5 % (42.0-75.0); Hematocrit 38.5 % (42.0-52.0); Hemoglobin 13.3 g/dL (14.0-18.0); Mean Corpuscular Hemoglobin 29.4 pg (27.0-31.0); Mean Corpuscular Volume 85.2 fL (78.0-98.0); Platelet Count 126 10x3/uL (130-400); Red Blood Cell (RBC) Count 4.52 mill/uL (4.70-6.10); White Blood Cell (WBC) Count 5.35 10x3/uL (4.8-10.8)
[2025-08-08 12:51] LABS: ALT (SGPT) 21 U/L (Less than 45); AST (SGOT) 24 U/L (11-34); Albumin 4.0 g/dL (3.1-4.5); Alkaline Phosphatase 57 U/L (40-110); Anion Gap 14 mmol/L (10-20); BUN (Urea Nitrogen) 18 mg/dL (8.4-25.7); Bilirubin, Total 0.5 mg/dL (0.3-1.2); Calc. Creatinine Clearance 0 mL/min (70-130); Calcium 9.4 mg/dL (7.8-10.44); Carbon Dioxide 25 mmol/L (23-31); Chloride 106 mmol/L (98-107); Globulin 2.9 g/dL (2.4-3.5); Glucose 136 mg/dL (83-110); Potassium 4.5 mmol/L (3.5-5.1); Sodium 140 mmol/L (136-145)
[2025-08-08] MEDS ORDERED: diphenhydrAMINE 50 MG/ML VIAL ONE (15:09)
[2025-08-08] MEDS ORDERED: cloNIDine 0.1 MG TAB ONE (15:09)
== END 2025-08-08 15:15 | disposition home or self-care (01) ==
LOC: ERS 11:23
DX: I16.0 Hypertensive urgency (principal); I10 Essential (primary) hypertension; E11.9 Type 2 diabetes mellitus without complications; J44.9 Chronic obstructive pulmonary disease, unspecified; I25.2 Old myocardial infarction; E78.00 Pure hypercholesterolemia, unspecified; Z79.84 Long term (current) use of oral hypoglycemic drugs; Z79.899 Other long term (current) drug therapy
CPT/HCPCS: 71045; 80053; 83880; 84484; 85025; 93005; J0360; J1200; 96374; 96375; 96376